=== PATIENT | female | born 1995 | race Caucasian/White ===

== ENCOUNTER 2019-10-11 14:14 | Emergency (ER) | payer BC ==
[2019-10-11 14:25] VITALS: BP 119/79
--- NOTE | 2019-10-11 15:01 | XRAY Report ---
Reason: trauma toes Procedure Date: 10/11/2019 Accession Number: [id number] / [id number] Procedure: XR - Toe(s) LT CPT Code: Final Report FULL RESULT: EXAM: LEFT FIRST TOE RADIOGRAPHY EXAM DATE: 10/11/2019 02:46 PM. CLINICAL HISTORY: Trauma toes. COMPARISON: None. TECHNIQUE: 3 views. FINDINGS: Bones: No acute fracture. Joints: No dislocation or subluxation. Soft Tissues: Unremarkable. IMPRESSION: No acute osseous or articular abnormality. RADIA
--- NOTE | 2019-10-11 16:20 | ED Physician Documentation ---
PD HPI LOWER EXT INJURY - Stated complaint Stated Complaint: LT BIG TOE PX - Chief complaint Chief Complaint: Trauma Ext - History obtained from History obtained from: Patient, Family - History of Present Illness PD HPI LOW EXT INJURY LOCATION: Left, Other (great toe) Type of injury: Other (bent backwards 4 days ago, continued pain.) Where injury occurred: Home Timing - duration: Days (4) Timing - details: Gradual onset Pain level max: 7 Pain level now: 5 Improved by: Rest, Ice, Immobilization Worsened by: Moving, Palpating Associated symptoms: Swelling, Discolored (bruising). No: Weakness, Numbness, Tingling Recently seen: Not recently seen Review of Systems Constitutional: denies: Fever : denies: Now EGA Skin: denies: Rash PD PAST MEDICAL HISTORY - Past Medical History Past Medical History: No - Past Surgical History Past Surgical History: No - Living Situation Living Arrangement: reports: At home - Family History Family history: reports: Non contributory PD ED PE NORMAL - Vitals Vital signs reviewed: Yes - General General: Alert and oriented X 3, No acute distress - Derm Derm: Warm and dry - Extremities Extremities: Other (Tender to palpation over the MTP joint Of the left great toe. Mild ecchymosis. No swelling. Neurovascular intact. Otherwise normal exam of the foot. No subungual hematoma.) - Neuro Neuro: Alert and oriented X 3 Results - Vitals Vitals: Vital Signs - 24 hr 10/11/19 14:23 Temperature 36.1 C L Heart Rate 73 Respiratory 20 Rate Blood Pressure 119/79 O2 Saturation 100 Oxygen O2 Source Room air - Rads (name of study) Left great toe x-ray Radiology: Prelim report reviewed, EMP read contemporaneously, See rad report (No acute osseous abnormality) PD MEDICAL DECISION MAKING - ED course Complexity details: reviewed results, considered differential, d/w patient ED course: Patient with a left great toe sprain. We will place her in a postoperative shoe. Declines pain medication here or for home. Patient counseled regarding signs and symptoms for which I believe and urgent re-evaluation would be necessary. Patient with good understanding of and agreement to plan and is comfortable going home at this time This document was made in part using voice recognition software. While efforts are made to proofread this document, sound alike and grammatical errors may occur. Departure - Departure Disposition: 01 Home, Self Care Clinical Impression: Sprain of great toe of left foot Qualifiers: Encounter type: initial encounter Qualified Code(s): S93.502A - Unspecified sprain of left great toe, initial encounter Condition: Good Instructions: ED Sprain Toe Follow-Up: Provider,Other [Primary Care Provider] - Within 1 week Comments: Return if you worsen. Your x-ray does not show any acute abnormality today. Follow-up with your doctor in 1 week if you are still having symptoms. You can use Motrin or Tylenol as needed for pain. You can utilize the postoperative shoe for comfort as well.
== END 2019-10-11 16:27 | disposition home or self-care (01) ==
LOC: ED 14:14
DX: S93.502A Unspecified sprain of left great toe, initial encounter (principal); X50.1XXA Overexertion from prolonged static or awkward postures, initial encounter
CPT/HCPCS: 73660; 99282; 99283

== ENCOUNTER 2019-12-23 08:00 | Outpatient (CLI) | payer BC, OTHER ==
[2019-12-23 21:55] LABS: TRICHOMONAS VAGINALIS DNA NEGATIVE (NEGATIVE)
== END 2019-12-23 23:59 | disposition home or self-care (01) ==
LOC: LAB.R 08:00
PROVIDERS: ATTEND Advanced Practice Midwife
DX: Z30.49 Encounter for surveillance of other contraceptives (principal)
CPT/HCPCS: 87491; 87591; 87661

== ENCOUNTER 2020-04-13 11:50 | Outpatient (CLI) | payer OTHER | END 2020-04-13 23:59 | disposition home or self-care (01) | LOC: COV 11:50 | PROVIDERS: ATTEND Family Medicine | DX: R50.9 Fever, unspecified (principal); Z20.828 Contact with and (suspected) exposure to other viral communicable diseases ==

== ENCOUNTER 2020-04-13 12:12 | Emergency (ER) | payer OTHER ==
[2020-04-13 12:38] LABS: BASOPHILS % (AUTO) 0.1 %; EOSINOPHILS # (AUTO) 0.1 10^3/uL (0.0-0.7); HGB - HEMOGLOBIN 15.2 g/dL (12.0-16.0); LYMPHOCYTES # (AUTO) 0.9 10^3/uL (1.5-3.5); LYMPHOCYTES % (AUTO) 10.3 %; MEAN CORPUSCULAR HEMOGLOBIN 31.7 pg (27.0-31.0); MEAN CORPUSCULAR HGB CONC 34.2 g/dL (32.0-36.0); MEAN CORPUSCULAR VOLUME 92.7 fL (81.0-99.0); MEAN PLATELET VOLUME 10.3 fL (7.9-10.8); MONOCYTES # (AUTO) 0.7 10^3/uL (0.0-1.0); MONOCYTES % (AUTO) 7.9 %; NEUTROPHILS # (AUTO) 7.3 10^3/uL (1.5-6.6); NEUTROPHILS % (AUTO) 80.3 %; PLT - PLATELET COUNT 208 10^3/uL (130-450); RED CELL DISTRIBUTION WIDTH 12.6 % (12.0-15.0); WHITE BLOOD COUNT 9.1 x10^3/uL (4.8-10.8)
[2020-04-13 12:52] LABS: ALBUMIN 4.2 g/dL (3.2-5.5); ALBUMIN/GLOBULIN RATIO 1.1 (1.0-2.2); BILIRUBIN,TOTAL 0.7 mg/dL (0.2-1.0); CALCIUM 9.2 mg/dL (8.5-10.3); CREATININE 0.8 mg/dL (0.4-1.0); TOTAL PROTEIN 7.9 g/dL (6.7-8.2)
[2020-04-13] MEDS ORDERED: SODIUM CHLORIDE 0.9% 1,000 ML IV STA (14:28)
--- NOTE | 2020-04-13 14:29 | ED Physician Documentation ---
History of Present Illness - Stated complaint Stated Complaint: FEVER/VOMITING - Chief complaint Chief Complaint: Abd Pain - Additonal information Additional information: 24-year-old female presents to the emergency department for evaluation of 3 days nausea vomiting diarrhea body aches. She also reports that she has had fever as high as 102.5. She reports that she received the flu vaccine just last week and this morning she did receive COVID-19 screening on the advice of her employer. She denies cough, congestion, she has no pertinent past surgical history. She states that she is typically able to keep most liquids down but when she eats food she begins to have diarrhea rather rapidly. She has had no melena, hematochezia, or emesis. denies tobacco, etoh use. denies possibility of . she does have a hx of interstitial cystitis but denies that at present she is having a flare or having dysuria urgency or frequency. Review of Systems Constitutional: reports: Fever, Myalgias Nose: denies: Rhinorrhea / runny nose, Congestion Cardiac: denies: Chest pain / pressure, Palpitations, Pedal edema, Calf pain Respiratory: denies: Dyspnea, Cough, Hemoptysis, Wheezing GI: reports: Nausea, Vomiting, Diarrhea. denies: Hematemesis, Bloody / black stool : reports: Other (History of interstitial cystitis). denies: Dysuria, Frequency, Hesitancy Skin: denies: Rash, Lesions Musculoskeletal: reports: Back pain (Chronic back pain, scoliosis, multiple herniated disks.). 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 - Past Surgical History Past Surgical History: No - Present Medications Home Medications: Ambulatory Orders Medication Instructions Recorded Confirmed Etonogestrel [Nexplanon] 68 mg SQ DAILY 04/13/20 04/13/20 Nortriptyline [Pamelor] 25 mg PO DAILY 04/13/20 04/13/20 - Allergies Allergies/Adverse Reactions: Allergies Allergy/AdvReac Type Severity Reaction Status Date / Time No Known Drug Allergies Allergy Verified 04/13/20 12:23 - Social History Does the pt smoke?: No Smoking Status: Never smoker PD ED PE NORMAL - General General: Alert and oriented X 3, No acute distress, Well developed/nourished - HEENT HEENT: PERRL, EOMI, Other (Dry posterior oropharynx and lips) - Neck Neck: Supple, no meningeal sign, No adenopathy - Cardiac Cardiac: RRR, No murmur, Strong equal pulses - Respiratory Respiratory: No respiratory distress, Clear bilaterally - Abdomen Abdomen: Normal bowel sounds, Soft, Non tender - Back Back: No CVA TTP, No spinal TTP - Derm Derm: Normal color, Warm and dry, No rash - Extremities Extremities: No deformity - Neuro Neuro: Alert and oriented X 3, sponsorship manager 2-12 intact, No motor deficit Eye Opening: Spontaneous Motor: Obeys Commands Verbal: Oriented GCS Score: 15 Results - Vitals Vitals: Vital Signs - 24 hr 04/13/20 04/13/20 12:20 13:54 Temperature 37.2 C 37.3 C Heart Rate 127 H 125 H Respiratory 20 12 Rate Blood Pressure 124/77 115/80 O2 Saturation 98 100 Oxygen O2 Source Room air - Labs Labs: Laboratory Tests 04/13/20 04/13/20 04/13/20 12:34 12:34 14:30 WBC 9.1 RBC 4.80 Hgb 15.2 Hct 44.5 MCV 92.7 MCH 31.7 H MCHC 34.2 RDW 12.6 Plt Count 208 MPV 10.3 Neut # (Auto) 7.3 H Lymph # (Auto) 0.9 L [place] # (Auto) 0.7 Eos # (Auto) 0.1 Baso # (Auto) 0.0 Absolute Nucleated RBC 0.00 Nucleated RBC % 0.0 Sodium 136 Potassium 3.7 Chloride 100 L Carbon Dioxide 27 Anion Gap 9.0 BUN 9 Creatinine 0.8 Estimated GFR (MDRD) 90 Glucose 107 H Calcium 9.2 Total Bilirubin 0.7 AST 19 ALT 20 Alkaline Phosphatase 110 Total Protein 7.9 Albumin 4.2 Globulin 3.7 Albumin/Globulin Ratio 1.1 Lipase 29 Urine Color YELLOW Urine Clarity SL. CLOUDY Urine pH 6.0 Ur Specific [place] 1.025 Urine Protein NEGATIVE Urine Glucose (UA) NEGATIVE Urine Ketones NEGATIVE Urine Occult Blood LARGE H Urine Nitrite NEGATIVE Urine Bilirubin NEGATIVE Urine Urobilinogen 0.2 (NORMAL) Ur Leukocyte Esterase NEGATIVE Urine RBC 0-5 Urine WBC 4-5 Ur Squamous Epith Cells MOD Squamous H Urine Bacteria Few Ur Microscopic Review INDICATED Urine Culture Comments NOT INDICATED Urine HCG, Qual NEGATIVE PD MEDICAL DECISION MAKING - ED course Complexity details: reviewed results, re-evaluated patient, d/w patient ED course: 24-year-old female presents to the emergency department for evaluation of 3 days nausea vomiting diarrhea body aches and fever as high as 102.5. Differentials include acute gastroenteritis, COVID-19, acute appendectomy, urinary tract infection Her labs are reviewed in full. She has no leukocytosis findings of renal insufficiency or elevated LFTs. I do note that there is some blood in her urine. I think this is most consistent with a history of interstitial cystitis. However she lacks the typical symptoms of a urinary tract infection. We will defer antibiotics for her urine unless the culture is positive. At this time I feel that her symptoms are most consistent with an acute viral gastroenteritis. She has no abdominal pain and I do not feel that she would benefit from advanced imaging such as a CT scan. I recommend fluids and rest at home. We will defer any antibiotics as her diarrhea has only been for the last 3 days and is nonbloody. However if her diarrhea persists and her fevers do not return to normal antibiotics might be considered at that time. Departure - Departure Disposition: 01 Home, Self Care Clinical Impression: Diarrhea Qualifiers: Diarrhea type: unspecified type Qualified Code(s): R19.7 - Diarrhea, unspecified Fever Qualifiers: Fever type: unspecified Qualified Code(s): R50.9 - Fever, unspecified Condition: Stable Instructions: Gastroenteritis Viral Ch Follow-Up: Bhupinder Damon [Primary Care Provider] - Comments: Maria I hope that you are feeling better soon. Your labs today look fairly unremarkable. Your liver and renal function is normal. Your white count is normal. I do not think that you have a urinary tract infection. The most common cause of your fever and vomiting and diarrhea is most low [place] of virus. This typically runs its course in 3 to 5 days. At home I would like you to try and stay well-hydrated. Drink lots of water and broth. Avoid juice or sport drinks because that can worsen diarrhea. If at any point you feel that your symptoms are worsening, the diarrhea is not in, your fevers do not improve or you have suddenly severe or different abdominal pain please return immediately to the emergency department for a second look
[2020-04-13 15:18] LABS: BILIRUBIN,URINE NEGATIVE (NEGATIVE); GLUCOSE, URINE (UA) NEGATIVE (NEGATIVE); KETONES,URINE (UA) NEGATIVE (NEGATIVE); LEUKOCYTE ESTERASE, URINE NEGATIVE (NEGATIVE); NITRITE,URINE NEGATIVE (NEGATIVE); OCCULT BLOOD,URINE LARGE (NEGATIVE); PROTEIN,URINE NEGATIVE (NEGATIVE); UROBILINOGEN,URINE 0.2 (NORMAL) E.U./dL (NORMAL)
[2020-04-13 15:28] LABS: BACTERIA,URINE Few /HPF (None Seen); CLARITY,URINE SL. CLOUDY (CLEAR); HCG UR QUAL NEGATIVE; RBC,URINE 0-5 /HPF (0-5); SQUAMOUS EPITHELIAL CELL,UR MOD Squamous (<= Few)
[2020-04-13 16:07] VITALS: BP 110/86
== END 2020-04-13 16:12 | disposition home or self-care (01) ==
LOC: ED 12:12
DX: R19.7 Diarrhea, unspecified (principal); R11.2 Nausea with vomiting, unspecified; R50.9 Fever, unspecified; Z20.828 Contact with and (suspected) exposure to other viral communicable diseases
CPT/HCPCS: 36415; 80053; 81001; 81003; 81025; 83690; 85025; 87086; 99283; 99284

== ENCOUNTER 2020-11-15 15:27 | Emergency (ER) | payer BC, OTHER ==
[2020-11-15 15:44] VITALS: BP 113/76
[2020-11-15 16:04] LABS: BILIRUBIN,URINE NEGATIVE (NEGATIVE); GLUCOSE, URINE (UA) NEGATIVE (NEGATIVE); KETONES,URINE (UA) NEGATIVE (NEGATIVE); LEUKOCYTE ESTERASE, URINE NEGATIVE (NEGATIVE); NITRITE,URINE NEGATIVE (NEGATIVE); OCCULT BLOOD,URINE NEGATIVE (NEGATIVE); PROTEIN,URINE NEGATIVE (NEGATIVE); UROBILINOGEN,URINE 0.2 (NORMAL) E.U./dL (NORMAL)
[2020-11-15 16:05] LABS: CLARITY,URINE SL. CLOUDY (CLEAR); HCG UR QUAL NEGATIVE
[2020-11-15 16:07] LABS: AMORPHOUS SEDIMENT,UR Marked /LPF; BACTERIA,URINE None Seen /HPF (None Seen); RBC,URINE 0-5 /HPF (0-5); SQUAMOUS EPITHELIAL CELL,UR FEW Squamous (<= Few); WBC,URINE 0-3 /HPF (0-5)
--- NOTE | 2020-11-15 16:41 | ED Physician Documentation ---
History of Present Illness - Stated complaint Stated Complaint: F - Chief complaint Chief Complaint: UTI - Additonal information Additional information: 25-year-old female presents to the emergency department for evaluation of urinary urgency, frequency and nausea. Patient does report a history of kidney stones as well as interstitial cystitis. She is concerned that this might be IC flare. She does see Dr. Tamayo through [facility] urology and is scheduled for cystoscopy on 29 November. She has no fevers or vomiting. No recent sexual intercourse. Denies vaginal discharge. Review of Systems Constitutional: reports: Fatigue. denies: Fever, Chills Eyes: reports: Reviewed and negative Ears: reports: Reviewed and negative Nose: reports: Reviewed and negative Throat: reports: Reviewed and negative Cardiac: reports: Reviewed and negative Respiratory: reports: Reviewed and negative GI: reports: Nausea. 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 - Past Surgical History Past Surgical History: No - Present Medications Home Medications: Ambulatory Orders Medication Instructions Recorded Confirmed Nortriptyline [Pamelor] 25 mg PO DAILY 04/13/20 11/15/20 Phenazopyridine HCl [Pyridium] 200 mg PO TID PRN #6 tablet 11/15/20 - Allergies Allergies/Adverse Reactions: Allergies Allergy/AdvReac Type Severity Reaction Status Date / Time No Known Drug Allergies Allergy Verified 11/15/20 15:42 - Social History Does the pt smoke?: No Smoking Status: Never smoker PD ED PE EXPANDED - General General: Alert, No acute distress, Well developed/nourished - Cardiac Cardiac: Regular Rate, Regular Rhythm, Radial strong equal, Cap refill < 2 sec - Respiratory Respiratory: Clear to ausultation bruna. No: Distress, Labored - Abdomen Abdomen: Normal Bowel sounds, Other (No suprapubic flank or CVA tenderness elicited. No guarding or rebound.). No: Tender to palpation - Derm Derm: Normal color, Warm and dry. No: Rash, Petecchiae, Purpura - Extremities Extremities: Normal. No: Deformity, Tenderness - Neuro Neuro: Alert and Oriented X 3, CNII-XII intact, Normal gait, Normal finger nose, Normal speech. No: Confused, Disoriented - GCS Eye Opening: Spontaneous Motor: Obeys Commands Verbal: Oriented Total: 15 Results - Vitals Vitals: Vital Signs - 24 hr 11/15/20 15:40 Temperature 37.1 C Heart Rate 98 Respiratory 16 Rate Blood Pressure 113/76 O2 Saturation 99 Oxygen O2 Source Room air - Labs Labs: Laboratory Tests 11/15/20 15:46 Urine Color YELLOW Urine Clarity SL. CLOUDY Urine pH 7.0 Ur Specific [place] 1.020 Urine Protein NEGATIVE Urine Glucose (UA) NEGATIVE Urine Ketones NEGATIVE Urine Occult Blood NEGATIVE Urine Nitrite NEGATIVE Urine Bilirubin NEGATIVE Urine Urobilinogen 0.2 (NORMAL) Ur Leukocyte Esterase NEGATIVE Urine RBC 0-5 Urine WBC 0-3 Ur Squamous Epith Cells FEW Squamous Amorphous Sediment Marked Urine Bacteria None Seen Ur Microscopic Review INDICATED Urine Culture Comments NOT INDICATED Urine HCG, Qual NEGATIVE PD MEDICAL DECISION MAKING - ED course Complexity details: reviewed results, re-evaluated patient, d/w patient ED course: This is a well-appearing 25-year-old female that presents the emergency department with 3 days of dysuria urgency and frequency. She does have a history of interstitial cystitis as well as kidney stones. The urine today is not consistent with infection though a culture is pending. I suspect that what she is experiencing right now is a UC flare and therefore I will defer antibiotics. I will put her on a 4-day course of Pyridium. Patient does have very close follow-up with her urologist and is scheduled for a cystoscopy on 29 November which she will continue to do. I have no suspicion for infected renal stone given the appearance of the urine in addition to that she had no flank pain CVA tenderness or significant hematuria. Emergent return precautions were discussed for worsening symptoms, fevers uncontrolled vomiting. Departure - Departure Disposition: 01 Home, Self Care Clinical Impression: Dysuria Condition: Stable Record reviewed to determine appropriate education?: Yes Instructions: Cystitis Interstitial Follow-Up: Stephanie Tamayo MD [Physician No Access] - Prescriptions: Phenazopyridine HCl [Pyridium] 200 mg PO TID PRN #6 tablet PRN Reason: dysuria Comments: Maria you were seen today for discomfort urgency and frequency with relation to your urine. Your urine does not suggest an infection today. You having are likely an interstitial cystitis flare. I have prescribed pyridium to help with bladder pain and spasms. Use twice daily for the next 3 days. Be aware that it will cause your urine to turn a bright orange. I also recommend that you stay well-hydrated and drink lots of water. Please do not miss the follow-up appointment with your urologist. If at any point you develop fevers, have increased pain uncontrolled vomiting or feel that your symptoms are not well controlled please return immediately to the ER for a second evaluation
== END 2020-11-15 16:51 | disposition home or self-care (01) ==
LOC: ED 15:27
DX: R30.0 Dysuria (principal)
CPT/HCPCS: 81001; 81003; 81025; 87086; 99283

== ENCOUNTER 2020-11-29 16:01 | Outpatient (CLI) | payer OTHER ==
--- NOTE | 2020-11-29 17:22 | Ultrasound Report ---
PROCEDURE: OB First Trimester w/TV INDICATIONS: POSITIVE TEST OUTSIDE/PRIOR DATING DATA: Last menstrual period (LMP): 10/26/2020. LMP-based estimated date of delivery (JAYCE): 08/02/2021. First dating scan (date and location): This study. Estimated date of delivery (JAYCE) from first dating scan: No gestation found.. TECHNIQUE: Real-time scanning was performed of the fetus and maternal pelvic organs, with image documentation. Endovaginal scanning was also performed to better visualize the fetus and maternal ovaries. COMPARISON: None FINDINGS: A gestational sac or intrauterine gestation is not found Embryo: None seen. Measurement variability in dating: +/- 4 weeks by LMP, +/- 7 days by mean sac diameter (use before 6 weeks gestation if crown-rump length not able to be measured), +/- 5 days by crown-rump length (6-12 weeks gestation). Maternal organs: Ovaries what appears to be a left corpus luteum cyst is noted.. IMPRESSION: An intrauterine gestation or secondary findings of ectopic are not seen. Please correlate f or quantitative beta hCG to assist in determining whether an intrauterine gestation should be visuali zed based on beta hCG values. Please note that ectopic has not yet been excluded in this cl inical circumstance. Reviewed by: Charly Elliott MD on 11/29/2020 5:21 PM PDT Approved by: Charly Elliott MD on 11/29/2020 5:21 PM PDT Station ID: [id number]
== END 2020-11-29 16:02 | disposition home or self-care (01) ==
LOC: DI 16:01
PROVIDERS: ATTEND Advanced Practice Midwife
DX: Z32.01 Encounter for pregnancy test, result positive (principal)

== ENCOUNTER 2020-12-02 17:27 | Outpatient (CLI) | payer OTHER | END 2020-12-02 17:28 | disposition home or self-care (01) | LOC: LAB 17:27 | PROVIDERS: ATTEND Nurse Practitioner Obstetrics & Gynecology | DX: Z32.01 Encounter for pregnancy test, result positive (principal) | CPT/HCPCS: 36415; 84702 ==

== ENCOUNTER 2020-12-06 16:10 | Outpatient (CLI) | payer OTHER | END 2020-12-06 16:11 | disposition home or self-care (01) | LOC: LAB 16:10 | PROVIDERS: ATTEND Nurse Practitioner Obstetrics & Gynecology | DX: Z32.01 Encounter for pregnancy test, result positive (principal) | CPT/HCPCS: 36415; 84702 ==

== ENCOUNTER 2020-12-09 14:02 | Outpatient (CLI) | payer OTHER | END 2020-12-09 14:03 | disposition home or self-care (01) | LOC: LAB 14:02 | PROVIDERS: ATTEND Nurse Practitioner Obstetrics & Gynecology | DX: Z32.01 Encounter for pregnancy test, result positive (principal) | CPT/HCPCS: 36415; 84702 ==

== ENCOUNTER 2020-12-22 17:34 | Emergency (ER) | payer OTHER ==
--- OUTSIDE RECORDS SUMMARY | 2020-12-22 17:38 | EXTERNAL MEDICAL SUMMARY RPT | Continuity of Care Document ---
:1995 Demographics Phone Unavailable Preferred Language Unknown Marital Status Unknown Yarsani Affiliation Unknown Race Unknown Ethnic Group Unknown Author Organization [facility] Address [address] [place] [address] Phone Social History date description facility [phone]
--- OUTSIDE RECORDS SUMMARY | 2020-12-22 17:41 | EXTERNAL MEDICAL SUMMARY RPT | Continuity of Care Document ---
:1995 Demographics Phone Unavailable Preferred Language Unknown Marital Status Unknown Rastafari Affiliation Unknown Race Unknown Ethnic Group Unknown Author Organization [facility] Address [address] [place] [address] Phone Social History date description facility [phone]
--- NOTE | 2020-12-22 17:58 | ED Physician Documentation ---
PD HPI FEMALE - Stated complaint Stated Complaint: FEMALE 7-8 WKS - Chief complaint Chief Complaint: Abd Pain - History obtained from History obtained from: Patient - Additional information Additional information: with history of 2 miscarriages has been having some side pain for last couple of weeks but started having spotting this evening which is very concerning to her. She had a nondiagnostic ultrasound on the seventh of this month. She was also being evaluated and was having generally rising hCGs starting out at 1530 on the of this month and [id number] on the of this month. 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 : Other - Past Surgical History Past Surgical History: No - Present Medications Home Medications: Ambulatory Orders Medication Instructions Recorded Confirmed Nortriptyline [Pamelor] 25 mg PO DAILY 04/13/20 12/22/20 Pnv No.95/Ferrous Fum/Folic AC 1 tab PO DAILY 12/22/20 12/22/20 [ Tablet] - Allergies Allergies/Adverse Reactions: Allergies Allergy/AdvReac Type Severity Reaction Status Date / Time No Known Drug Allergies Allergy Verified 12/22/20 17:39 - Social History Does the pt smoke?: No Smoking Status: Never smoker PD ED PE NORMAL - Vitals Vital signs reviewed: Yes - General General: Alert and oriented X 3 (She is tearful) - Abdomen Abdomen: Normal bowel sounds, Soft, Non tender - Female Female : Other (Bedside ultrasound demonstrates no IUP, I do not see free fluid either though.) - Back Back: No CVA TTP, No spinal TTP - Neuro Neuro: Alert and oriented X 3, Normal speech Results - Vitals Vitals: Vital Signs - 24 hr 12/22/20 12/22/20 17:40 19:11 Temperature 36.9 C 37.4 C Heart Rate 93 90 Respiratory 18 12 Rate Blood Pressure 126/77 124/83 H O2 Saturation 100 96 Oxygen O2 Source Room air - Labs Labs: Laboratory Tests 12/22/20 12/22/20 12/22/20 17:52 17:52 17:52 WBC 9.5 RBC 4.38 Hgb 13.9 Hct 39.9 MCV 91.1 MCH 31.7 H MCHC 34.8 RDW 12.0 Plt Count 263 MPV 11.1 H Neut # (Auto) 6.7 H Lymph # (Auto) 2.0 [place] # (Auto) 0.8 Eos # (Auto) 0.1 Baso # (Auto) 0.0 Absolute Nucleated RBC 0.00 Nucleated RBC % 0.0 Sodium 136 Potassium 3.3 L Chloride 102 Carbon Dioxide 25 Anion Gap 9.0 BUN 9 Creatinine 0.5 Estimated GFR (MDRD) 153 Glucose 94 Calcium 9.5 Total Bilirubin 0.7 AST 26 ALT 29 Alkaline Phosphatase 98 Total Protein 7.7 Albumin 4.5 Globulin 3.2 Albumin/Globulin Ratio 1.4 Lipase 28 HCG, Quant Urine Color Urine Clarity Urine pH Ur Specific [place] Urine Protein Urine Glucose (UA) Urine Ketones Urine Occult Blood Urine Nitrite Urine Bilirubin Urine Urobilinogen Ur Leukocyte Esterase Urine RBC Urine WBC Ur Squamous Epith Cells Urine Bacteria Ur Microscopic Review Urine Culture Comments Blood Type O POSITIVE 12/22/20 12/22/20 17:52 17:52 WBC RBC Hgb Hct MCV MCH MCHC RDW Plt Count MPV Neut # (Auto) Lymph # (Auto) [place] # (Auto) Eos # (Auto) Baso # (Auto) Absolute Nucleated RBC Nucleated RBC % Sodium Potassium Chloride Carbon Dioxide Anion Gap BUN Creatinine Estimated GFR (MDRD) Glucose Calcium Total Bilirubin AST ALT Alkaline Phosphatase Total Protein Albumin Globulin Albumin/Globulin Ratio Lipase HCG, Quant 303155.00 Urine Color YELLOW Urine Clarity CLEAR Urine pH 6.0 Ur Specific [place] 1.010 Urine Protein NEGATIVE Urine Glucose (UA) NEGATIVE Urine Ketones NEGATIVE Urine Occult Blood NEGATIVE Urine Nitrite NEGATIVE Urine Bilirubin NEGATIVE Urine Urobilinogen 0.2 (NORMAL) Ur Leukocyte Esterase SMALL H Urine RBC 0-5 Urine WBC 0-3 Ur Squamous Epith Cells RARE Squamous Urine Bacteria Rare Ur Microscopic Review INDICATED Urine Culture Comments INDICATED Blood Type PD MEDICAL DECISION MAKING - ED course ED course: 25-year-old woman presents scared about the potential for miscarriage having done so twice before, but work-up here was reassuring with evidence of live intrauterine and steadily rising hCG. Blood type is O+. Departure - Departure Disposition: 01 Home, Self Care Clinical Impression: Vaginal bleeding Qualifiers: Weeks of gestation: less than 8 weeks Qualified Code(s): Z3A.01 - Less than 8 weeks gestation of Condition: Good Record reviewed to determine appropriate education?: Yes Instructions: ED Care Comments: Ultrasound is reassuring with a live 7-week 3-day . Follow-up with the nurse exam proctor and return if worsening. Discharge Date/Time: 12/22/20 19:16
[2020-12-22 18:03] LABS: BASOPHILS % (AUTO) 0.3 %; EOSINOPHILS # (AUTO) 0.1 10^3/uL (0.0-0.7); EOSINOPHILS % (AUTO) 0.5 %; HCT - HEMATOCRIT 39.9 % (37.0-47.0); HGB - HEMOGLOBIN 13.9 g/dL (12.0-16.0); LYMPHOCYTES % (AUTO) 20.4 %; MEAN CORPUSCULAR HEMOGLOBIN 31.7 pg (27.0-31.0); MEAN CORPUSCULAR HGB CONC 34.8 g/dL (32.0-36.0); MEAN CORPUSCULAR VOLUME 91.1 fL (81.0-99.0); MEAN PLATELET VOLUME 11.1 fL (7.9-10.8); MONOCYTES # (AUTO) 0.8 10^3/uL (0.0-1.0); NEUTROPHILS # (AUTO) 6.7 10^3/uL (1.5-6.6); NEUTROPHILS % (AUTO) 70.6 %; PLT - PLATELET COUNT 263 10^3/uL (130-450); RED BLOOD COUNT 4.38 10^6/uL (4.20-5.40); WHITE BLOOD COUNT 9.5 x10^3/uL (4.8-10.8)
[2020-12-22 18:11] LABS: BILIRUBIN,URINE NEGATIVE (NEGATIVE); GLUCOSE, URINE (UA) NEGATIVE (NEGATIVE); KETONES,URINE (UA) NEGATIVE (NEGATIVE); LEUKOCYTE ESTERASE, URINE SMALL (NEGATIVE); NITRITE,URINE NEGATIVE (NEGATIVE); OCCULT BLOOD,URINE NEGATIVE (NEGATIVE); PROTEIN,URINE NEGATIVE (NEGATIVE); UROBILINOGEN,URINE 0.2 (NORMAL) E.U./dL (NORMAL)
[2020-12-22 18:12] LABS: ALBUMIN 4.5 g/dL (3.2-5.5); ALBUMIN/GLOBULIN RATIO 1.4 (1.0-2.2); BILIRUBIN,TOTAL 0.7 mg/dL (0.2-1.0); CALCIUM 9.5 mg/dL (8.5-10.3); CREATININE 0.5 mg/dL (0.4-1.0); POTASSIUM 3.3 mmol/L (3.5-5.0); TOTAL PROTEIN 7.7 g/dL (6.7-8.2)
[2020-12-22 18:13] LABS: BACTERIA,URINE Rare /HPF (None Seen); CLARITY,URINE CLEAR (CLEAR); RBC,URINE 0-5 /HPF (0-5); SQUAMOUS EPITHELIAL CELL,UR RARE Squamous (<= Few); WBC,URINE 0-3 /HPF (0-5)
[2020-12-22 19:12] VITALS: BP 124/83
--- NOTE | 2020-12-22 19:40 | Ultrasound Report ---
PROCEDURE: OB First Trimester w/TV INDICATIONS: vb PREG, HCG [id number] OUTSIDE/PRIOR DATING DATA: Last menstrual period (LMP): 10/26/2020. LMP-based estimated date of delivery (JAYCE): 08/02/2021. First dating scan (date and location): 12/22/2020 at [facility]. Estimated date of delivery (JAYCE) from first dating scan: 08/07/2021. TECHNIQUE: Real-time scanning was performed of the fetus and maternal pelvic organs, with image documentation. Endovaginal scanning was also performed to better visualize the fetus and maternal ovaries. COMPARISON: OB ultrasound, 11/29/2020. FINDINGS: Embryo: There is a single living IUP with with the estimated gestational age 7 weeks 3 days. h eart tone is present with heart rate 165 BPM. There is a normal-appearing yolk sac. There is a 4 x 5 mm cyst adjacent to the gestational sac. Note is made of retroverted uterus. Measurement variability in dating: +/- 4 weeks by LMP, +/- 7 days by mean sac diameter (use before 6 weeks gestation if crown-rump length not able to be measured), +/- 5 days by crown-rump length (6-12 weeks gestation). Maternal organs: There is a corpus luteum in the left ovary. Ovaries are grossly normal. IMPRESSION: 1. A single living IUP with the estimated gestational age 7 weeks 3 days based on the current ultraso und. The ultrasound JAYCE is 08/07/2021. 2. A small 4 x 5 mm cyst adjacent to the gestational sac. No perinephric gestational bleed is present . 3. Normal ovaries. A corpus luteum is noted in the left ovary. Reviewed by: Samm Melton MD on 12/22/2020 7:38 PM PDT Approved by: Samm Melton MD on 12/22/2020 7:38 PM PDT Station ID: [id number]
== END 2020-12-22 19:16 | disposition home or self-care (01) ==
LOC: ED 17:34
DX: O20.9 Hemorrhage in early pregnancy, unspecified (principal); Z3A.01 Less than 8 weeks gestation of pregnancy
CPT/HCPCS: 36415; 80053; 81001; 81003; 83690; 84702; 85025; 86900; 86901; 87086; 99283; 99284

== ENCOUNTER 2021-01-10 11:00 | Outpatient (CLI) | payer OTHER ==
[2021-01-11 11:48] LABS: MUDS CUTOFF CONCENTRATIONS CUTOFF CONC BELOW:
[2021-01-11 11:53] LABS: BILIRUBIN,URINE NEGATIVE (NEGATIVE); GLUCOSE, URINE (UA) NEGATIVE (NEGATIVE); KETONES,URINE (UA) NEGATIVE (NEGATIVE); LEUKOCYTE ESTERASE, URINE NEGATIVE (NEGATIVE); NITRITE,URINE NEGATIVE (NEGATIVE); OCCULT BLOOD,URINE NEGATIVE (NEGATIVE); PROTEIN,URINE NEGATIVE (NEGATIVE); UROBILINOGEN,URINE 0.2 (NORMAL) E.U./dL (NORMAL)
[2021-01-11 11:54] LABS: CLARITY,URINE CLOUDY (CLEAR)
[2021-01-11 12:02] LABS: AMORPHOUS SEDIMENT,UR Moderate /LPF; BACTERIA,URINE Few /HPF (None Seen); RBC,URINE 0-5 /HPF (0-5); SQUAMOUS EPITHELIAL CELL,UR MOD Squamous (<= Few); WBC,URINE 0-3 /HPF (0-5)
[2021-01-11 12:03] LABS: AMPHETAMINE SCREEN,URINE NEGATIVE (NEGATIVE); BARBITURATE SCREEN,UR NEGATIVE (NEGATIVE); BENZODIAZEPINES SCREEN, URINE NEGATIVE (NEGATIVE); COCAINE SCREEN URINE NEGATIVE (NEGATIVE); CRYSTALS,URINE 3-5 Calcium Oxalate /LPF; METHADONE SCREEN, URINE NEGATIVE (NEGATIVE); METHAMPHETAMINES SCREEN, URINE NEGATIVE (NEGATIVE); OPIATE SCREEN, URINE NEGATIVE (NEGATIVE); OXYCODONE SCREEN, URINE NEGATIVE (NEGATIVE); PROPOXYPHENE SCREEN, URINE NEGATIVE (NEGATIVE); THC CANNABINOID SCREEN, URINE POSITIVE (NEGATIVE); TRICYCLIC ANTIDEPRESSANT,URINE NEGATIVE (NEGATIVE)
[2021-01-11 21:09] LABS: CHLAMYDIA TRACHOMATIS DNA NEGATIVE (NEGATIVE); NEISSERIA GONORRHOEAE DNA NEGATIVE (NEGATIVE); TRICHOMONAS VAGINALIS DNA NEGATIVE (NEGATIVE)
== END 2021-01-10 23:59 | disposition home or self-care (01) ==
LOC: LAB.R 11:00
PROVIDERS: ATTEND Obstetrics & Gynecology
DX: Z36.89 Encounter for other specified antenatal screening (principal)
CPT/HCPCS: 80306; 80349; 81001; 81599; 87491; 87591; 87661

== ENCOUNTER 2021-01-17 11:07 | Outpatient (CLI) | payer OTHER ==
[2021-01-17 11:31] LABS: BASOPHILS % (AUTO) 0.3 %; EOSINOPHILS # (AUTO) 0.1 10^3/uL (0.0-0.7); HGB - HEMOGLOBIN 12.1 g/dL (12.0-16.0); LYMPHOCYTES # (AUTO) 1.3 10^3/uL (1.5-3.5); LYMPHOCYTES % (AUTO) 21.6 %; MEAN CORPUSCULAR HEMOGLOBIN 31.2 pg (27.0-31.0); MEAN CORPUSCULAR HGB CONC 34.6 g/dL (32.0-36.0); MEAN CORPUSCULAR VOLUME 90.2 fL (81.0-99.0); MEAN PLATELET VOLUME 11.5 fL (7.9-10.8); MONOCYTES # (AUTO) 0.5 10^3/uL (0.0-1.0); MONOCYTES % (AUTO) 8.7 %; NEUTROPHILS % (AUTO) 67.7 %; PLT - PLATELET COUNT 192 10^3/uL (130-450); RED BLOOD COUNT 3.88 10^6/uL (4.20-5.40); RED CELL DISTRIBUTION WIDTH 12.3 % (12.0-15.0); WHITE BLOOD COUNT 5.8 x10^3/uL (4.8-10.8)
== END 2021-01-17 11:08 | disposition home or self-care (01) ==
LOC: LAB 11:07
PROVIDERS: ATTEND Obstetrics & Gynecology
DX: Z36.89 Encounter for other specified antenatal screening (principal); Z13.21 Encounter for screening for nutritional disorder; Z32.01 Encounter for pregnancy test, result positive
CPT/HCPCS: 36415; 82306; 84702; 85025; 86592; 86762; 86787; 86803; 86850; 86900; 86901; 87340; 87389

== ENCOUNTER 2021-02-14 11:50 | Outpatient (CLI) | payer OTHER ==
[2021-02-14 12:58] LABS: ALBUMIN 3.4 g/dL (3.2-5.5); ALBUMIN/GLOBULIN RATIO 0.9 (1.0-2.2); BILIRUBIN,TOTAL 0.3 mg/dL (0.2-1.0); CALCIUM 9.2 mg/dL (8.5-10.3); CREATININE 0.4 mg/dL (0.4-1.0); POTASSIUM 3.4 mmol/L (3.5-5.0); TOTAL PROTEIN 7.2 g/dL (6.7-8.2)
[2021-02-16 23:37] LABS: ANA PATTERN Nuclear, Speckled; ANA SCREEN POSITIVE (NEGATIVE); ANA TITER 1:40 titer
== END 2021-02-14 11:51 | disposition home or self-care (01) ==
LOC: LAB 11:50
PROVIDERS: ATTEND Obstetrics & Gynecology
DX: O09.90 Supervision of high risk pregnancy, unspecified, unspecified trimester (principal); O99.119 Other diseases of the blood and blood-forming organs and certain disorders involving the immune mechanism complicating pregnancy, unspecified trimester; O99.019 Anemia complicating pregnancy, unspecified trimester; Z13.21 Encounter for screening for nutritional disorder; M32.9 Systemic lupus erythematosus, unspecified; D64.9 Anemia, unspecified
CPT/HCPCS: 36415; 80053; 81511; 81599; 82306; 82607; 82746; 83540; 84466; 86038; 86235

== ENCOUNTER 2021-03-14 15:10 | Outpatient (CLI) | payer OTHER ==
--- NOTE | 2021-03-15 17:05 | Ultrasound Report ---
PROCEDURE: OB Detailed Eval INDICATIONS: SUPERVISION OF HIGH RISK OUTSIDE/PRIOR DATING DATA: Last menstrual period (LMP): 10/26/2020. LMP-based estimated date of delivery (JAYCE): 08/02/2021. First dating scan (date and location): 12/22/2020. Estimated date of delivery (JAYCE) from first dating scan: 08/07/2021. The below data below was generated using the 12/22/2020 JAYCE of 08/07/2021 TECHNIQUE: Real-time scanning was performed of the fetus, with image documentation and biometric measurements. Endovaginal scanning: No COMPARISON: Prior OB ultrasound dated 12/22/2020.. FINDINGS: General: A single living intrauterine gestation is present. Presentation: Vertex to Placenta: Placental position is posterior, without previa. Amniotic fluid index: 14.5 cm, normal for gestational age. heart rate: 160 beats per minute. Maternal cervical canal: 3.5 cm long; normal length is 2.5 cm or more. biometrics: Biparietal diameter: 19 weeks 5 days Head circumference: 19 weeks 5 days Abdominal circumference: 19 weeks 4 days Femur length: 19 weeks 4 days Estimated gestational age from initial scan: 19 weeks 1 day. Composite gestational age from present scan: 19 weeks 4 days Estimated weight and percentile: 300 g, 71st percentile Measurement variability in biometric dating: +/- 10 days from 12-20 weeks gestation, +/- 2 weeks from 20-30 weeks gestation, +/- 3 weeks at 30 weeks gestation or later. Anatomic survey: Neuro: Ventricles are normal at less than 10 mm. Cisterna magna and cerebellum not well seen. Nuchal skin fold: Normal at less than 6 mm between 14 and 20 weeks gestational age. Face: Not well seen. Spine: No evidence for spina bifida. Heart: Suboptimally visualized. Diaphragm: Diaphragm is intact. Stomach: Left-sided stomach is present. Kidneys: No hydronephrosis. Normal is less than 5 mm in 2nd trimester, less than 7 mm in 3rd trimester. Cord: 3 vessel cord has orthotopic insertion. Bladder: Normal in size. Extremities: All 4 extremities are visualized. IMPRESSION: 1. Single living IUP redemonstrated and interval growth is within normal limits. 2. Limited anatomic survey as above. Follow-up is recommended. Reviewed by: DAVID Rowe on 03/15/2021 5:04 PM PDT Approved by: Vane Gilmore MD on 03/15/2021 5:04 PM PDT Station ID: [id number]
== END 2021-03-14 15:11 | disposition home or self-care (01) ==
LOC: DI 15:10
PROVIDERS: ATTEND Obstetrics & Gynecology
DX: O09.92 Supervision of high risk pregnancy, unspecified, second trimester (principal); Z3A.19 19 weeks gestation of pregnancy; Z36.89 Encounter for other specified antenatal screening

== ENCOUNTER 2021-05-09 11:37 | Outpatient (CLI) | payer OTHER ==
[2021-05-09 12:56] LABS: HCT - HEMATOCRIT 35.6 % (37.0-47.0); HGB - HEMOGLOBIN 11.7 g/dL (12.0-16.0); MEAN CORPUSCULAR HGB CONC 32.9 g/dL (32.0-36.0); MEAN CORPUSCULAR VOLUME 94.4 fL (81.0-99.0); MEAN PLATELET VOLUME 10.7 fL (7.9-10.8); RED BLOOD COUNT 3.77 10^6/uL (4.20-5.40); RED CELL DISTRIBUTION WIDTH 13.3 % (12.0-15.0); WHITE BLOOD COUNT 7.8 x10^3/uL (4.8-10.8)
== END 2021-05-09 11:38 | disposition home or self-care (01) ==
LOC: LAB 11:37
PROVIDERS: ATTEND Obstetrics & Gynecology
DX: O09.90 Supervision of high risk pregnancy, unspecified, unspecified trimester (principal); Z36.89 Encounter for other specified antenatal screening
CPT/HCPCS: 36415; 82950; 85027; 86850

== ENCOUNTER 2021-05-30 14:36 | Emergency (ER) | payer OTHER ==
--- NOTE | 2021-05-30 15:00 | ED Physician Documentation ---
PD HPI DYSPNEA - Stated complaint Stated Complaint: SOA,HIGH PULSE/OB - Chief complaint Chief Complaint: Cardiac - History obtained from History obtained from: Patient - Additional information Additional information: 26-year-old G1 at 31 weeks gestation who is undergoing a work-up for potential antiphospholipid antibody syndrome but has no personal history of DVT or PE presents with a months worth of shortness of breath, worse over the last week. It is worse with exertion and with supine position. She has also had transient/intermittent right calf pain that feels like a charley horse. Sent fr om clinic to evaluate for PE. 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, Other - Past Surgical History Past Surgical History: No - Present Medications Home Medications: Ambulatory Orders Medication Instructions Recorded Confirmed Nortriptyline [Pamelor] 25 mg PO DAILY 04/13/20 12/22/20 Pnv No.95/Ferrous Fum/Folic AC 1 tab PO DAILY 12/22/20 12/22/20 [ Tablet] - Allergies Allergies/Adverse Reactions: Allergies Allergy/AdvReac Type Severity Reaction Status Date / Time No Known Drug Allergies Allergy Verified 05/30/21 14:46 - Social History Does the pt smoke?: No Smoking Status: Never smoker Does the pt drink ETOH?: No Does the pt have substance abuse?: No - Immunizations Immunizations are current?: Yes - POLST Patient has POLST: No PD ED PE NORMAL - Vitals Vital signs reviewed: Yes (Tachycardia to the 1-teens) - General General: Alert and oriented X 3, No acute distress - HEENT HEENT: PERRL, EOMI - Neck Neck: Supple, no meningeal sign, No bony TTP - Cardiac Cardiac: Other (Rapid and regular, no murmur) - Respiratory Respiratory: No respiratory distress, Clear bilaterally - Abdomen Abdomen: Non tender, Other ( heart tones done in the clinic just prior to arrival) - Back Back: No CVA TTP, No spinal TTP - Derm Derm: Normal color, Warm and dry - Extremities Extremities: No edema, No calf tenderness / cord - Neuro Neuro: Alert and oriented X 3, Normal speech Results - Vitals Vitals: Vital Signs - 24 hr 05/30/21 05/30/21 05/30/21 14:38 14:48 16:44 Temperature 36 C L Heart Rate 116 H 105 H 97 Respiratory 18 18 18 Rate Blood Pressure 125/82 H 116/82 H 108/70 O2 Saturation 99 Oxygen O2 Source Room air - EKG (time done) 1458 Rate: Rate (enter#) (114) Rhythm: Sinus tachycardia [place]: Normal Intervals: Normal RI QRS: Normal Ischemia: Normal ST segments - Labs Labs: Laboratory Tests 05/30/21 05/30/21 05/30/21 15:06 15:06 15:06 WBC 9.5 RBC 3.65 L Hgb 11.5 L Hct 33.8 L MCV 92.6 MCH 31.5 H MCHC 34.0 RDW 13.3 Plt Count 244 MPV 10.9 H Neut # (Auto) 6.9 H Lymph # (Auto) 1.3 L [place] # (Auto) 1.0 Eos # (Auto) 0.1 Baso # (Auto) 0.0 Absolute Nucleated RBC 0.00 Nucleated RBC % 0.0 D-Dimer 358.3 H Sodium 134 L Potassium 3.6 Chloride 101 Carbon Dioxide 23 Anion Gap 10.0 BUN 8 Creatinine 0.4 Estimated GFR (MDRD) 196 Glucose 94 Calcium 9.2 Total Bilirubin 0.2 AST 18 ALT 15 Alkaline Phosphatase 105 Total Protein 7.1 Albumin 3.4 Globulin 3.7 Albumin/Globulin Ratio 0.9 L - Rads (name of study) CTA Chest Radiology: EMP read contemporaneously (Neg) PD MEDICAL DECISION MAKING - ED course ED course: Discussed work-up options for her for potential thromboembolic disease. After discussion of D-dimer versus CT versus ultrasound she opted for D-dimer and ultrasound to start. Her D-dimer is 358 DDU, this would correspond to 716 FEU. Given that she is in her third trimester , it is normal for D-dimer to go up. Bilateral lower extremity ultrasound was negative for DVT. There is conflicting information on the literature as to the value of D-dimer in , Dr. Jayce David has proposed that in the third trimester, 1250 FEU should be used as the cut off for positive versus negative. The above was discussed with the patient as well as areas of uncertainty given current literature and after discussion she would like to still go ahead with the CT angiography of the chest. She understands there will be a small dose of radiation delivered not only to her but to the growing fetus as well. Departure - Departure Disposition: 01 Home, Self Care Clinical Impression: Dyspnea Qualifiers: Weeks of gestation: 31 weeks Qualified Code(s): Z3A.31 - 31 weeks gestation of Condition: Good Record reviewed to determine appropriate education?: Yes Instructions: ED Dyspnea Shortness of Breath Comments: Ultrasound of the legs and CAT scan of the chest were negative for blood clots. Blood work was at expected levels for third trimester . Return for new or worsening symptoms but follow-up with your OB and MFM specialists as scheduled.
[2021-05-30 15:18] LABS: BASOPHILS % (AUTO) 0.2 %; EOSINOPHILS # (AUTO) 0.1 10^3/uL (0.0-0.7); EOSINOPHILS % (AUTO) 0.9 %; HCT - HEMATOCRIT 33.8 % (37.0-47.0); HGB - HEMOGLOBIN 11.5 g/dL (12.0-16.0); LYMPHOCYTES # (AUTO) 1.3 10^3/uL (1.5-3.5); MEAN CORPUSCULAR HEMOGLOBIN 31.5 pg (27.0-31.0); MEAN CORPUSCULAR VOLUME 92.6 fL (81.0-99.0); MEAN PLATELET VOLUME 10.9 fL (7.9-10.8); MONOCYTES % (AUTO) 10.7 %; NEUTROPHILS # (AUTO) 6.9 10^3/uL (1.5-6.6); NEUTROPHILS % (AUTO) 72.5 %; PLT - PLATELET COUNT 244 10^3/uL (130-450); RED BLOOD COUNT 3.65 10^6/uL (4.20-5.40); RED CELL DISTRIBUTION WIDTH 13.3 % (12.0-15.0); WHITE BLOOD COUNT 9.5 x10^3/uL (4.8-10.8)
[2021-05-30 15:24] LABS: ALBUMIN 3.4 g/dL (3.2-5.5); ALBUMIN/GLOBULIN RATIO 0.9 (1.0-2.2); BILIRUBIN,TOTAL 0.2 mg/dL (0.2-1.0); CALCIUM 9.2 mg/dL (8.5-10.3); CREATININE 0.4 mg/dL (0.4-1.0); POTASSIUM 3.6 mmol/L (3.5-5.0); TOTAL PROTEIN 7.1 g/dL (6.7-8.2)
[2021-05-30] MEDS ORDERED: IOVERSOL 320 100 ML VIAL IVP ONE ×2 (15:57→20:34)
--- NOTE | 2021-05-30 16:05 | Ultrasound Report ---
PROCEDURE: Duplex Ext Veins Bilateral INDICATIONS: Limping, dyspnea, . Bilateral cramping. TECHNIQUE: Real-time imaging, as well as color and pulse Doppler interrogation, were performed of the deep veins of both legs from the inguinal ligament to the popliteal fossa. COMPARISON: None available. FINDINGS: VASCULATURE: Normal spontaneous flow and phasicity, augmentation and waveforms, and compressibility o f the vessels from the common femoral veins through the calf veins. SOFT TISSUES: No acute abnormality. IMPRESSION: 1.No evidence for deep venous thrombus in the right or left lower extremity. Reviewed by: Kj Vences MD on 05/30/2021 4:04 PM PDT Approved by: Kj Vences MD on 05/30/2021 4:04 PM PDT Station ID: [id number]
--- NOTE | 2021-05-30 16:47 | CT Report ---
PROCEDURE: ANGIO CHEST W/WO INDICATIONS: dyspnea CONTRAST: IV CONTRAST: Optiray 320 ml: 80 PO CONTRAST: *NO PO CONTRAST TECHNIQUE: After the administration of intravenous contrast, 2 mm axial images were acquired from the pulmonary apices to the posterior costophrenic angles during the arterial phase. In addition, 1 mm lung kernel and 5 mm soft tissue kernel reconstructions were performed. 3-dimensional coronal oblique maximum int ensity projection (MIP) reformats, 8 mm axial MIP, and 5 mm coronal and sagittal MPR reformats were t hen performed through the thorax. For radiation dose reduction, the following was used: automated exp osure control, adjustment of mA and/or kV according to patient size. COMPARISON: None. FINDINGS: Image quality: Excellent. Pulmonary arteries: No pulmonary artery filling defect demonstrated. Lungs and pleura: Lungs and pleural spaces are clear. Central airways unremarkable. Mediastinum: Normal heart size. No pericardial effusion. No threshold enlarged mediastinal or hilar l ymph node. Nonspecific soft tissue density abnormality within the distal thoracic esophagus measuring up to 4 cm. Bones and chest wall: No suspicious lytic or blastic osseous lesion. No acute osseous finding. No axi llary lymphadenopathy. Abdomen: Grossly unremarkable upper abdomen with caveat that arterial phase contrast evaluation is li mited. IMPRESSION: No pulmonary embolism demonstrated. Nonspecific soft tissue density within the distal thoracic esophagus measuring up to 4 cm. This could represent a retained food bolus versus a soft tissue density mass. Direct visualization versus esoph agram recommended for further evaluation. CLINICAL RECOMMENDATION STATEMENTS: In patients <35 years with an ITN detected on CT, MRI, or extrathyroidal ultrasound, the Committee re commends further evaluation with dedicated thyroid ultrasound if the nodule is "e1 cm and has no susp icious imaging features, and if the patient has normal life expectancy. In patients "e35 years with an ITN detected on CT, MRI, or extrathyroidal ultrasound, the Committee r ecommends further evaluation with dedicated thyroid ultrasound if the nodule is "e1.5 cm and has no s uspicious imaging features, and if the patient has normal life expectancy. (ACR, 2014) Reviewed by: Francisco J Bray MD on 05/30/2021 4:46 PM PDT Approved by: Francisco J Bray MD on 05/30/2021 4:46 PM PDT Station ID: [id number]
[2021-05-30 17:05] VITALS: BP 106/70
== END 2021-05-30 17:06 | disposition home or self-care (01) ==
LOC: ED 14:36
DX: O26.893 Other specified pregnancy related conditions, third trimester (principal); R06.00 Dyspnea, unspecified; Z3A.31 31 weeks gestation of pregnancy
CPT/HCPCS: 36415; 71275; 80053; 85025; 85379; 93005; 93970; 99284; Q9967

== ENCOUNTER 2021-06-07 23:30 | Emergency (ER) | payer OTHER ==
--- NOTE | 2021-06-07 23:51 | ED Physician Documentation ---
History of Present Illness - Stated complaint Stated Complaint: SI, MHE - Chief complaint Chief Complaint: MHE - History obtained from History obtained from: Patient - Additonal information Additional information: 26yF presents after being sent in by Dr. Green for depressive symptoms and self- injurious behavior. Patient has been cutting her BL legs and contacted malariologist in regards to this and was referred to the emergency department. Patient states that when she was younger she was hospitalized for self-injurious behavior and attempted overdose. recently, over the past month she's been cutting her legs. Dr. Silva just started her on lamictal 1 month ago as a mood stabilizer. Also on vitamins and nortriptaline for leg pain. patient denies SI, stating she is cutting her legs as a coping mechanism when she has a panic attack. does endorse anxiety and depressive symptoms. just moved out of state due to . denies HI or AVH. denies obstetric complaint. normal movement. Review of Systems Ten Systems: 10 systems reviewed and negative Psychiatric: reports: Depressed, Anxiety. 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 - Past Surgical History Past Surgical History: No - Present Medications Home Medications: Ambulatory Orders Medication Instructions Recorded Confirmed Nortriptyline [Pamelor] 25 mg PO DAILY 04/13/20 06/08/21 Pnv No.95/Ferrous Fum/Folic AC 1 tab PO DAILY 12/22/20 06/08/21 [ Tablet] Famotidine [Pepcid] 40 mg PO QPM 06/08/21 06/08/21 lamoTRIgine [LaMICtal] 25 mg PO DAILY 06/08/21 06/08/21 - Allergies Allergies/Adverse Reactions: Allergies Allergy/AdvReac Type Severity Reaction Status Date / Time No Known Drug Allergies Allergy Verified 06/07/21 23:43 - Social History Does the pt smoke?: No Smoking Status: Never smoker Does the pt drink ETOH?: No Does the pt have substance abuse?: No - Immunizations Immunizations are current?: Yes - POLST Patient has POLST: No PD ED PE NORMAL - Vitals Vital signs reviewed: Yes - General General: Alert and oriented X 3, No acute distress, Well developed/nourished - HEENT HEENT: Atraumatic, PERRL, EOMI - Neck Neck: Supple, no meningeal sign - Cardiac Cardiac: RRR - Respiratory Respiratory: No respiratory distress, Clear bilaterally - Abdomen Abdomen: Non tender, Non distended - Derm Derm: Normal color, Warm and dry, Other (multiple abrasions and superficial lacerations to BL lateral legs.) - Extremities Extremities: Other (2+ DP and pt pulses. soft compartments of BL legs. normal sensation, cap refill, strength. ) - Neuro Neuro: Alert and oriented X 3 - Psych Psych: Other (anxious/depressed mood. normal affect) Results - Vitals Vitals: Vital Signs - 24 hr 06/07/21 06/08/21 23:30 01:50 Temperature 36.3 C L 36.4 C L Heart Rate 96 76 Respiratory 16 16 Rate Blood Pressure 114/82 H 100/68 O2 Saturation 99 100 Oxygen O2 Source Room air - Labs Labs: Laboratory Tests 06/07/21 06/07/21 06/07/21 23:59 23:59 23:59 WBC 9.9 RBC 3.65 L Hgb 11.2 L Hct 33.2 L MCV 91.0 MCH 30.7 MCHC 33.7 RDW 13.2 Plt Count 257 MPV 10.7 Neut # (Auto) 6.6 Lymph # (Auto) 2.1 [place] # (Auto) 1.0 Eos # (Auto) 0.1 Baso # (Auto) 0.0 Absolute Nucleated RBC 0.00 Nucleated RBC % 0.0 Sodium 134 L Potassium 3.6 Chloride 102 Carbon Dioxide 21 Anion Gap 11.0 BUN 8 Creatinine 0.5 Estimated GFR (MDRD) 152 Glucose 100 Calcium 8.9 Total Bilirubin 0.3 AST 21 ALT 15 Alkaline Phosphatase 119 Total Protein 7.1 Albumin 3.4 Globulin 3.7 Albumin/Globulin Ratio 0.9 L Lipase 40 TSH 4.17 Urine Color Urine Clarity Urine pH Ur Specific [place] Urine Protein Urine Glucose (UA) Urine Ketones Urine Occult Blood Urine Nitrite Urine Bilirubin Urine Urobilinogen Ur Leukocyte Esterase Ur Microscopic Review Urine Culture Comments Urine HCG, Qual Salicylates < 6.0 Urine Opiates Screen Ur Oxycodone Screen Urine Methadone Screen Ur Propoxyphene Screen Acetaminophen < 10 L Ur Barbiturates Screen Ur Tricyclics Screen Ur Phencyclidine Scrn Ur Amphetamine Screen U Methamphetamines Scrn U Benzodiazepines Scrn Urine Cocaine Screen U Cannabinoids Screen Ethyl Alcohol < 5.0 06/07/21 23:59 WBC RBC Hgb Hct MCV MCH MCHC RDW Plt Count MPV Neut # (Auto) Lymph # (Auto) [place] # (Auto) Eos # (Auto) Baso # (Auto) Absolute Nucleated RBC Nucleated RBC % Sodium Potassium Chloride Carbon Dioxide Anion Gap BUN Creatinine Estimated GFR (MDRD) Glucose Calcium Total Bilirubin AST ALT Alkaline Phosphatase Total Protein Albumin Globulin Albumin/Globulin Ratio Lipase TSH Urine Color YELLOW Urine Clarity CLEAR Urine pH 5.5 Ur Specific [place] >=1.030 H Urine Protein NEGATIVE Urine Glucose (UA) 100 H Urine Ketones NEGATIVE Urine Occult Blood TRACE-INTA Urine Nitrite NEGATIVE Urine Bilirubin NEGATIVE Urine Urobilinogen 0.2 (NORMAL) Ur Leukocyte Esterase NEGATIVE Ur Microscopic Review NOT INDICATED Urine Culture Comments NOT INDICATED Urine HCG, Qual POSITIVE Salicylates Urine Opiates Screen NEGATIVE Ur Oxycodone Screen NEGATIVE Urine Methadone Screen NEGATIVE Ur Propoxyphene Screen NEGATIVE Acetaminophen Ur Barbiturates Screen NEGATIVE Ur Tricyclics Screen POSITIVE H Ur Phencyclidine Scrn NEGATIVE Ur Amphetamine Screen NEGATIVE U Methamphetamines Scrn NEGATIVE U Benzodiazepines Scrn NEGATIVE Urine Cocaine Screen NEGATIVE U Cannabinoids Screen NEGATIVE Ethyl Alcohol Procedures - Laceration (location) Lower extremity Length in cm: 10 Wound type: Linear Neurovascular status: Sensory intact, Motor intact, Vascular intact Tendon involvement: Tendon intact Anesthesia: Lidocaine 1%, With bicarb Wound preparation: Irrigated copiously NS Skin layer closure: Nylon, Interrupted, Size #-0 - enter number (4), Sutures - enter # (10) Other: Patient tolerated well, No complications, Dressing applied, Tetanus UTD, Other (note that this was 4 superficial lacerations , one to each leg) PD MEDICAL DECISION MAKING - ED course ED course: normal FHR on ob monitoring. Sutures placed. patient expressing wish for outpatient psychiatric resources. Denies any SI or suicidal intent, stating her cutting behavior is strictly a coping mechanism. Patient to see Social work and to be endorsed to daytime MD Dr. Eldridge. Departure - Departure Clinical Impression: Laceration, Depression, Anxiety, Self-injurious behavior Condition: Stable Instructions: ED Laceration All Comments: YOu had 10 stitches placed in the emergency department. You should have these removed in 14 days. Please monitor for signs of infection and return if you have any concerns. Please follow up with the mental health resources our social studies teacher discussed. Please also call your primary doctor for follow up. Return to the emergency department immediately if you have further thoughts of self-harm, or if you develop a plan to kill yourself or hurt anyone else. National suicide prevention hotline
[2021-06-08 00:04] LABS: BASOPHILS % (AUTO) 0.3 %; EOSINOPHILS # (AUTO) 0.1 10^3/uL (0.0-0.7); EOSINOPHILS % (AUTO) 1.2 %; HCT - HEMATOCRIT 33.2 % (37.0-47.0); HGB - HEMOGLOBIN 11.2 g/dL (12.0-16.0); LYMPHOCYTES # (AUTO) 2.1 10^3/uL (1.5-3.5); LYMPHOCYTES % (AUTO) 20.7 %; MEAN CORPUSCULAR HEMOGLOBIN 30.7 pg (27.0-31.0); MEAN CORPUSCULAR HGB CONC 33.7 g/dL (32.0-36.0); MEAN PLATELET VOLUME 10.7 fL (7.9-10.8); NEUTROPHILS # (AUTO) 6.6 10^3/uL (1.5-6.6); NEUTROPHILS % (AUTO) 66.9 %; PLT - PLATELET COUNT 257 10^3/uL (130-450); RED BLOOD COUNT 3.65 10^6/uL (4.20-5.40); RED CELL DISTRIBUTION WIDTH 13.2 % (12.0-15.0); WHITE BLOOD COUNT 9.9 x10^3/uL (4.8-10.8)
[2021-06-08 00:05] LABS: MUDS CUTOFF CONCENTRATIONS CUTOFF CONC BELOW:
[2021-06-08 00:07] LABS: BILIRUBIN,URINE NEGATIVE (NEGATIVE); GLUCOSE, URINE (UA) 100 mg/dL (NEGATIVE); KETONES,URINE (UA) NEGATIVE (NEGATIVE); LEUKOCYTE ESTERASE, URINE NEGATIVE (NEGATIVE); NITRITE,URINE NEGATIVE (NEGATIVE); OCCULT BLOOD,URINE TRACE-INTA (NEGATIVE); PH,URINE 5.5 PH (5.0-7.5); PROTEIN,URINE NEGATIVE (NEGATIVE); UROBILINOGEN,URINE 0.2 (NORMAL) E.U./dL (NORMAL)
[2021-06-08 00:08] LABS: CLARITY,URINE CLEAR (CLEAR); HCG UR QUAL POSITIVE
[2021-06-08 00:17] LABS: AMPHETAMINE SCREEN,URINE NEGATIVE (NEGATIVE); BARBITURATE SCREEN,UR NEGATIVE (NEGATIVE); BENZODIAZEPINES SCREEN, URINE NEGATIVE (NEGATIVE); COCAINE SCREEN URINE NEGATIVE (NEGATIVE); METHADONE SCREEN, URINE NEGATIVE (NEGATIVE); METHAMPHETAMINES SCREEN, URINE NEGATIVE (NEGATIVE); OPIATE SCREEN, URINE NEGATIVE (NEGATIVE); OXYCODONE SCREEN, URINE NEGATIVE (NEGATIVE); PROPOXYPHENE SCREEN, URINE NEGATIVE (NEGATIVE); THC CANNABINOID SCREEN, URINE NEGATIVE (NEGATIVE); TRICYCLIC ANTIDEPRESSANT,URINE POSITIVE (NEGATIVE)
[2021-06-08 00:20] LABS: ACETAMINOPHEN < 10 ug/mL (10-30); ALBUMIN 3.4 g/dL (3.2-5.5); ALBUMIN/GLOBULIN RATIO 0.9 (1.0-2.2); ALKALINE PHOSPHATASE 119 IU/L (42-121); ALT ALANINE AMINOTRANSFERASE 15 IU/L (10-60); AST ASPARTATE AMINOTRANSFERASE 21 IU/L (10-42); BILIRUBIN,TOTAL 0.3 mg/dL (0.2-1.0); BUN - BLOOD UREA NITROGEN 8 mg/dL (6-20); CALCIUM 8.9 mg/dL (8.5-10.3); CARBON DIOXIDE - CO2 21 mmol/L (21-32); CHLORIDE 102 mmol/L (101-111); CREATININE 0.5 mg/dL (0.4-1.0); ETOH - ETHANOL < 5.0 mg/dL; GFR - MDRD 152 (>89); GLUCOSE 100 mg/dL (70-100); LIPASE 40 U/L (22-51); POTASSIUM 3.6 mmol/L (3.5-5.0); SALICYLATE < 6.0 mg/dL; SODIUM 134 mmol/L (135-145); TOTAL PROTEIN 7.1 g/dL (6.7-8.2)
[2021-06-08] MEDS ORDERED: BACITRACIN ZINC OINT 1 PACKET TOP STA (00:51)
[2021-06-08] MEDS ORDERED: diphenhydrAMINE 25 MG CAPSULE PO STA (02:03)
[2021-06-08] MEDS ORDERED: BUFFERED LIDOCAINE 10 ML SYRINGE SUBQ STA ×2 (02:04→02:33)
[2021-06-08 07:18] VITALS: BP 110/68
--- NOTE | 2021-06-08 10:38 | ED Physician Documentation ---
ED Addendum - Addendum Addendum: 06/08/21 10:38 Patient signed out to me pending social work consultation. Briefly this is a 26-year-old woman who is who has been cutting. She is contracted for safety with the healthcare social worker and I also saw her at bedside. She is comfortable with discharge and agrees that she has no active suicidal ideation. She did want some medication for anxiety. Hydroxyzine is safe in but discussed with her that she should take it as little as possible and use other methods for anxiety relief, nonpharmacologic, if she is able. She voices understanding. We also discussed wound care instructions. Disposition: Discharged home Condition: Stable Diagnosis: 1. Depression 2. Anxiety 3. 4. Leg laceration,
== END 2021-06-08 10:55 | disposition home or self-care (01) ==
LOC: ED 23:30
DX: O99.340 Other mental disorders complicating pregnancy, unspecified trimester (principal); F32.9 Major depressive disorder, single episode, unspecified; F41.9 Anxiety disorder, unspecified; O9A.219 Injury, poisoning and certain other consequences of external causes complicating pregnancy, unspecified trimester; S81.812A Laceration without foreign body, left lower leg, initial encounter; S81.811A Laceration without foreign body, right lower leg, initial encounter; X78.9XXA Intentional self-harm by unspecified sharp object, initial encounter; Z3A.00 Weeks of gestation of pregnancy not specified
CPT/HCPCS: 12004; 36415; 80053; 80306; 80307; 80320; 80329; 81003; 81025; 83690; 84443; 85025; 99283; A9270; 81001; 87086

== ENCOUNTER 2021-07-04 08:00 | Outpatient (CLI) | payer OTHER | END 2021-07-04 23:59 | disposition home or self-care (01) | LOC: LAB.WC 08:00 | PROVIDERS: ATTEND Obstetrics & Gynecology | DX: O09.90 Supervision of high risk pregnancy, unspecified, unspecified trimester (principal); Z36.85 Encounter for antenatal screening for Streptococcus B | CPT/HCPCS: 87797 ==

== ENCOUNTER 2021-07-06 14:43 | Outpatient (CLI) | payer OTHER ==
--- NOTE | 2021-07-06 16:44 | Ultrasound Report ---
PROCEDURE: OB F/U or Repeat INDICATIONS: SUPERVISION OF HIGH RISK OUTSIDE/PRIOR DATING DATA: Last menstrual period (LMP): 10/26/2020. LMP-based estimated date of delivery (JAYCE): 08/02/2021. First dating scan (date and location): 12/22/2020 [facility]. Estimated date of delivery (JAYCE) from first dating scan: 08/07/2021. The below data below was generated using the ultrasound JAYCE of 08/07/2021 TECHNIQUE: Real-time scanning was performed of the fetus, with image documentation and biometric measurements. COMPARISON: None. FINDINGS: General: A single living intrauterine gestation is present. Presentation: Vertex Placenta: Placental position is posterior, without previa. Amniotic fluid index: 15.8 cm, normal for gestational age. heart rate: 164 beats per minute. Maternal cervical canal: 2.9 cm long; normal length is 2.5 cm or more. biometrics: Biparietal diameter: 9.4 cm. 38 weeks 2 days Head circumference: 33.1 cm. 37 weeks 5 days. Abdominal circumference: 30.1 cm. 34 weeks 0 days. Femur length: 6.6 cm. 34 weeks 0 days. Estimated gestational age from initial scan: 35 weeks 3 days. Composite gestational age from present scan: 36 weeks 0 days. Estimated weight and percentile: 2524 g. 31.6 percentile. The chest/diaphragm, stomach/abdomen, bilateral renal regions, and urinary bladder/pelvis are normal on this ultrasound. Completion of anatomic scan was performed on prior ultrasounds. Measurement variability in biometric dating: +/- 10 days from 12-20 weeks gestation, +/- 2 weeks from 20-30 weeks gestation, +/- 3 weeks at 30 weeks gestation or more. Other: Not applicable. IMPRESSION: 1. Ultrasound gestational age of 36 weeks 0 days by present scan, 35 weeks 3 days by initial scan. 2. Normal anatomy on today's scan as above. 3. The cervix is closed. 4. Normal TRICIA. 5. Estimated weight 2524 g. 31.6 percentile. Reviewed by: Jorje Laureano on 07/06/2021 4:43 PM PST Approved by: Jorje Laureano on 07/06/2021 4:43 PM PST Station ID: [id number]
== END 2021-07-06 14:44 | disposition home or self-care (01) ==
LOC: DI 14:43
PROVIDERS: ATTEND Obstetrics & Gynecology
DX: O09.93 Supervision of high risk pregnancy, unspecified, third trimester (principal); Z3A.36 36 weeks gestation of pregnancy

== ENCOUNTER 2021-08-09 05:58 | Inpatient (IN) | payer MEDICAID, OTHER ==
[2021-08-09] MEDS ORDERED: CARBOPROST TROMETHAMINE 250 MCG/ML AMP IM PRN (06:26)
[2021-08-09] MEDS ORDERED: TRANEXAMIC ACID IN NACL 1,000 MG/100 ML BAG IV PRN (06:26)
[2021-08-09] MEDS ORDERED: OXYTOCIN 10 UNIT/ML VIAL IM PRN (06:26)
[2021-08-09] MEDS ORDERED: LIDOCAINE-MPF 1% 30 ML VIAL ID PRN (06:26)
[2021-08-09] MEDS ORDERED: miSOPROStoL 200 MCG TABLET BC PRN (06:26)
[2021-08-09] MEDS ORDERED: OXYTOCIN/SODIUM CHLORIDE 500 ML IV PRN ×2 (06:26→20:37)
[2021-08-09] MEDS ORDERED: SODIUM CHLORIDE FLUSH 0.9% 10 ML SYRINGE IVP PRN ×2 (06:26→20:37)
[2021-08-09] MEDS ORDERED: METHYLERGONOVINE 0.2 MG/ML VIAL IM PRN (06:26)
--- NOTE | 2021-08-09 06:34 | HISTORY & PHYSICAL EXAMINATION ---
Admit History - Visit Reason Visit Reason: Contractions - : 3 Parity: 0 Complications This : positive: Other (depression, lupus) Smoking Status: Never smoker - Mother's Labs Mother's RH: positive: Positive GBS: positive: Group B Step Negative - Other Maternal History Other Maternal History: The patient presents with complaints of contractions. She does report bloody show. She notes positive movement. She denies leakage of fluid. She reports a medical history complicated by scoliosis, herniated disc, and work-up for lupus versus connective tissue disease secondary to skin abnormalities and fibromyalgia. Past medical historydepression, scoliosis, herniated disc, Past surgical historytonsillectomy Allergies no known drug allergies labs- O+ Rubella immune RPR negative Hep B negative HIV negative 1 hour 96 GBS negative Quad screen negative Meds/Allgy - Home Medications Home Medications: Ambulatory Orders Medication Instructions Recorded Confirmed Nortriptyline [Pamelor] 25 mg PO DAILY 04/13/20 06/08/21 Pnv No.95/Ferrous Fum/Folic AC 1 tab PO DAILY 12/22/20 06/08/21 [ Tablet] Famotidine [Pepcid] 40 mg PO QPM 06/08/21 06/08/21 hydrOXYzine HCL [Hydroxyzine HCl] 25 mg PO TID PRN #20 tablet 06/08/21 lamoTRIgine [LaMICtal] 25 mg PO DAILY 06/08/21 06/08/21 - Allergies Allergies/Adverse Reactions: Allergies Allergy/AdvReac Type Severity Reaction Status Date / Time No Known Drug Allergies Allergy Verified 06/07/21 23:43 Physical - Abdominal Exam Contraction Frequency (min/apart): 5 Uterine Resting Tone: positive: Soft - Monitoring Heart Rate Baseline: 140 Strip Review: positive: Category II - Presentation Presentation: positive: Vertex - Vaginal Exam Membranes: positive: Membranes intact Dilation (in cm): 3 Effacement (%): 75 Station: positive: -2 Cervical Position: positive: Midposition Plan for Labor - Plan For Labor Plan for Labor: 26-year-old G3, P0 at 41 weeks 0 days who presents with complaints of contractions. 1. Uterine contractions-patient reports contractions every 2 to 5 minutes. Irregular contractions noted on toco on presentation cervix was 3/90/-1 on exam. Patient with periods of minimal variability however positive acceleration was noted with sterile vaginal exam. We will resuscitate with IV hydration position change with plan for induction of labor with category 1 tracing noted.
[2021-08-09] MEDS: LACTATED RINGERS 1,000 ML IV SCH ×3 (06:49→17:08)
--- NOTE | 2021-08-09 08:32 | ANESTHESIA ---
Pre-Anesthesia VS, & Labs - Diagnosis active labor - Procedure labor epidural Vital Signs: Temp Pulse Resp BP Pulse Ox 36.7 C 94 16 131/87 H 100 08/09/21 08:04 08/09/21 07:44 08/09/21 07:44 08/09/21 07:44 08/09/21 07:44 Height: 5 ft 9 in Weight (kg): 80.739 kg Body Mass Index: 26.2 BMI Classification: Overweight - NPO Other (pt eating breakfast at 0830) - Is Patient ?: Yes Home Medications and Allergies Active Medications Carboprost Tromethamine (Carboprost Tromethamine 250 Mcg/Ml Amp) 250 mcg IM Q15M PRN PRN Reason: Step 4: Hemorrhage protocol Stop: 08/14/21 06:27 Oxytocin/Sodium Chloride (Pitocin/Sodium Chloride) 500 mls @ 999 mls/hr IV PRN PRN; Protocol PRN Reason: POST- HEMORR PREVENTION Stop: 08/14/21 06:27 Tranexamic Acid (Tranexamic 1,000 Mg/100ml-Nacl) 1,000 mg in 100 mls @ 600 mls/hr IV .ONCE PRN PRN Reason: EBL >1200mL and within 3hr Stop: 08/14/21 06:27 Lactated Ringer's (Lr) 1,000 mls @ 100 mls/hr IV .Q10H CORDELIA Last Admin: 08/09/21 07:33 Dose: 999 mls/hr Documented by: Lidocaine HCl (Lidocaine-Mpf 1% 30 Ml Vial) 30 ml ID .ONCE PRN PRN Reason: PERINEAL REPAIR Stop: 08/14/21 06:27 Methylergonovine Maleate (Methylergonovine 0.2 Mg/Ml Vial) 0.2 mg IM .ONCE PRN PRN Reason: Step 2: Hemorrhage protocol Stop: 08/14/21 06:27 Misoprostol (Misoprostol 200 Mcg Tablet) 800 mcg BC .ONCE PRN PRN Reason: Step 3: Hemorrhage protocol Stop: 08/14/21 06:27 Oxytocin (Oxytocin 10 Unit/Ml Vial) 10 unit IM .ONCE PRN PRN Reason: Step one: If no IV access Stop: 08/14/21 06:27 Sodium Chloride (Sodium Chloride Flush 0.9% 10 Ml Syringe) 10 ml IVP 01 00,0900,1700 CORDELIA Sodium Chloride (Sodium Chloride Flush 0.9% 10 Ml Syringe) 10 ml IVP PRN PRN PRN Reason: NEEDED PER PROVIDER ORDERS Nortriptyline [Pamelor] 25 mg PO DAILY 04/13/20 Pnv No.95/Ferrous Fum/Folic AC [ Tablet] 1 tab PO DAILY 12/22/20 Famotidine [Pepcid] 40 mg PO QPM 06/08/21 lamoTRIgine [LaMICtal] 25 mg PO DAILY 06/08/21 Allergies/Adverse Reactions: Allergies Allergy/AdvReac Type Severity Reaction Status Date / Time No Known Drug Allergies Allergy Verified 08/09/21 07:28 Anes History & Medical History - Anesthetic History Anesthesia Complications: reports: No previous complications Family history of Anesthesia Complications: Denies Family history of Malignant Hyperthermia: Denies - Medical History Urinary: reports: None, Other Smoking Status: Former smoker Psychosocial: reports: Depression, Anxiety History of Cancer?: No - Obstetrical History : 3 Parity: 0 Complications: reports: Other (depression, lupus) Exam General: Alert, Oriented x3, Cooperative Dental: WNL Mouth Openin Fingerbreadth Neck Mobility: Normal Mallampati classification: I Thyromental Distance: 4-6 cm Respiratory: Lungs clear Cardiovascular: Regular rate Plan Anesthesia Type: Epidural Consent for Procedure(s) Verified and Reviewed: Yes Code Status: Attempt Resuscitation ASA classification: 2-Mild systemic disease Is this case an emergency?: No
[2021-08-09 08:40] LABS: BILIRUBIN,URINE NEGATIVE (NEGATIVE); CLARITY,URINE CLEAR (CLEAR); GLUCOSE, URINE (UA) 100 mg/dL (NEGATIVE); KETONES,URINE (UA) NEGATIVE (NEGATIVE); LEUKOCYTE ESTERASE, URINE NEGATIVE (NEGATIVE); NITRITE,URINE NEGATIVE (NEGATIVE); OCCULT BLOOD,URINE NEGATIVE (NEGATIVE); PROTEIN,URINE NEGATIVE (NEGATIVE); UROBILINOGEN,URINE 0.2 (NORMAL) E.U./dL (NORMAL)
[2021-08-09] MEDS ORDERED: SODIUM CHLORIDE FLUSH 0.9% 10 ML SYRINGE IVP SCH (09:00)
--- NOTE | 2021-08-09 09:43 | PROVIDER PROGRESS NOTE ---
Labor Progress Note - Uterine Monitoring Uterine Monitoring Mode: positive: External toco Contraction Frequency (min/apart): 4-7 Contraction Intensity: positive: Mild Uterine Resting Tone: positive: Soft - Monitoring Monitor Mode: positive: External ultrasound Heart Rate Baseline: 140 Heart Rate Variability: positive: Minimal (0-5 bpm) Accelerations: positive: Present, 15x15 Decelerations: positive: None Strip Review: positive: Category II - Vaginal Exam Dilation (in cm): 4 Effacement (%): 60 - Labor Progress Note Labor Progress Note/Additional Text: Patient is dilating on her own. Will recheck in 2 hours and consider amniotomy. Maintenance fluids currently at 100ml/hour. Did improve heart tracing after first liter was received. Will initiate oxytocin for hypotonic contractions if she stops progressing.
[2021-08-09 09:45] LABS: WHITE BLOOD COUNT 11.6 x10^3/uL (4.8-10.8)
[2021-08-09 09:46] LABS: BASOPHILS # (AUTO) 0.1 10^3/uL (0.0-0.1); BASOPHILS % (AUTO) 0.4 %; EOSINOPHILS # (AUTO) 0.1 10^3/uL (0.0-0.7); HCT - HEMATOCRIT 39.7 % (37.0-47.0); HGB - HEMOGLOBIN 13.1 g/dL (12.0-16.0); LYMPHOCYTES % (AUTO) 16.9 %; MEAN CORPUSCULAR HEMOGLOBIN 30.5 pg (27.0-31.0); MEAN CORPUSCULAR VOLUME 92.3 fL (81.0-99.0); MEAN PLATELET VOLUME 12.9 fL (7.9-10.8); MONOCYTES # (AUTO) 1.3 10^3/uL (0.0-1.0); MONOCYTES % (AUTO) 10.8 %; NEUTROPHILS # (AUTO) 8.1 10^3/uL (1.5-6.6); NEUTROPHILS % (AUTO) 69.3 %; PLT - PLATELET COUNT 225 10^3/uL (130-450); RED CELL DISTRIBUTION WIDTH 14.7 % (12.0-15.0)
[2021-08-09] MEDS ORDERED: ROPIVACAINE 0.2% 200 MG/100 ML BAG EP ONE (12:23)
[2021-08-09] MEDS ORDERED: OXYTOCIN/SODIUM CHLORIDE 500 ML IV SCH (13:00)
[2021-08-09] MEDS ORDERED: METOCLOPRAMIDE 10 MG/2 ML VIAL IVP PRN ×2 (13:03→21:42)
[2021-08-09] MEDS ORDERED: ePHEDrine 50 MG/ML VIAL IVP PRN ×2 (13:03→21:42)
[2021-08-09] MEDS ORDERED: diphenhydrAMINE INJ 50 MG/ML VIAL IVP PRN (13:03)
[2021-08-09] MEDS ORDERED: ROPIVACAINE 0.2% 200 MG/100 ML BAG EP PRN (13:03)
[2021-08-09] MEDS ORDERED: NALOXONE 0.4 MG/ML VIAL IVP PRN ×2 (13:03→21:42)
[2021-08-09] MEDS ORDERED: NALBUPHINE 10 MG/ML AMP IVP PRN (13:03)
[2021-08-09] MEDS ORDERED: ONDANSETRON 4 MG/2 ML VIAL IVP PRN ×2 (13:03→21:42)
--- NOTE | 2021-08-09 13:05 | ANESTHESIA PROCEDURE NOTE ---
Anesthesia Epidural Template - Patient Report Patient Reports: positive: Pain controlled - Plan Plan: positive: Continue current management
--- NOTE | 2021-08-09 13:23 | PROVIDER PROGRESS NOTE ---
Subjective - Prog Note Date Prog Note Date: 08/09/21 Prog Note Time: 12:31 - Subjective Subjective: Patient is mostly comfortable. Contractions have petered out. SVE /-1 Mild variability no accels or decels VAS for return of moderate variability and Cat I tracing Consent for pitocin augmentation obtained Starting pitocin per protocol Epidural ordered for placement with start of pitocin. Should be upgraded to in-patient status. Objective - Vital Signs/Intake & Output Vital Signs: Vital Signs x48h Temp Pulse Pulse Resp BP BP Pulse Ox 08/09/21 08:04 98.1 F 08/09/21 07:44 98.1 F 94 16 131/87 H 100 08/09/21 06:35 98.8 F 91 19 125/77 Intake & Output: Intake & Output 08/06/21 08/07/21 08/08/21 08/09/21 23:59 23:59 23:59 23:59 Intake Total 732.6 Balance 732.6 - Lab Results Fish Bones: 08/09/21 06:49 Other Labs: Lab Results x24hrs 08/09/21 08/09/21 08/09/21 Range/Units 08:01 06:49 06:49 WBC 11.6 H (4.8-10.8) x10^3/uL RBC 4.30 (4.20-5.40) 10^6/uL Hgb 13.1 (12.0-16.0) g/dL Hct 39.7 (37.0-47.0) % MCV 92.3 (81.0-99.0) fL MCH 30.5 (27.0-31.0) pg MCHC 33.0 (32.0-36.0) g/dL RDW 14.7 (12.0-15.0) % Plt Count 225 (130-450) 10^3/uL MPV 12.9 H (7.9-10.8) fL Neut # (Auto) 8.1 H (1.5-6.6) 10^3/uL Lymph # (Auto) 2.0 (1.5-3.5) 10^3/uL [place] # (Auto) 1.3 H (0.0-1.0) 10^3/uL Eos # (Auto) 0.1 (0.0-0.7) 10^3/uL Baso # (Auto) 0.1 (0.0-0.1) 10^3/uL Urine Color YELLOW Urine Clarity CLEAR (CLEAR) Urine pH 6.0 (5.0-7.5) PH Ur Specific [place] 1.010 (1.002-1.030) Urine Protein NEGATIVE (NEGATIVE) mg/dL Urine Glucose (UA) 100 H (NEGATIVE) mg/dL Urine Ketones NEGATIVE (NEGATIVE) mg/dL Urine Occult Blood NEGATIVE (NEGATIVE) Urine Nitrite NEGATIVE (NEGATIVE) Urine Bilirubin NEGATIVE (NEGATIVE) Urine Urobilinogen 0.2 (NORMAL) (NORMAL) E.U./dL Ur Leukocyte Esterase NEGATIVE (NEGATIVE) Ur Microscopic Review NOT INDICATED Urine Culture Comments NOT INDICATED Blood Type O POSITIVE Antibody Screen NEGATIVE
--- NOTE | 2021-08-09 16:55 | PROVIDER PROGRESS NOTE ---
Subjective - Prog Note Date Prog Note Date: 08/09/21 Prog Note Time: 16:37 Objective - Vital Signs/Intake & Output Intake & Output: Intake & Output 08/06/21 08/07/21 08/08/21 08/09/21 23:59 23:59 23:59 23:59 Intake Total 1082.6 Output Total 975 Balance 107.6 - Lab Results Fish Bones: 08/09/21 06:49 Other Labs: Lab Results x24hrs 08/09/21 08/09/21 08/09/21 Range/Units 08:01 06:49 06:49 WBC 11.6 H (4.8-10.8) x10^3/uL RBC 4.30 (4.20-5.40) 10^6/uL Hgb 13.1 (12.0-16.0) g/dL Hct 39.7 (37.0-47.0) % MCV 92.3 (81.0-99.0) fL MCH 30.5 (27.0-31.0) pg MCHC 33.0 (32.0-36.0) g/dL RDW 14.7 (12.0-15.0) % Plt Count 225 (130-450) 10^3/uL MPV 12.9 H (7.9-10.8) fL Neut # (Auto) 8.1 H (1.5-6.6) 10^3/uL Lymph # (Auto) 2.0 (1.5-3.5) 10^3/uL [place] # (Auto) 1.3 H (0.0-1.0) 10^3/uL Eos # (Auto) 0.1 (0.0-0.7) 10^3/uL Baso # (Auto) 0.1 (0.0-0.1) 10^3/uL Urine Color YELLOW Urine Clarity CLEAR (CLEAR) Urine pH 6.0 (5.0-7.5) PH Ur Specific [place] 1.010 (1.002-1.030) Urine Protein NEGATIVE (NEGATIVE) mg/dL Urine Glucose (UA) 100 H (NEGATIVE) mg/dL Urine Ketones NEGATIVE (NEGATIVE) mg/dL Urine Occult Blood NEGATIVE (NEGATIVE) Urine Nitrite NEGATIVE (NEGATIVE) Urine Bilirubin NEGATIVE (NEGATIVE) Urine Urobilinogen 0.2 (NORMAL) (NORMAL) E.U./dL Ur Leukocyte Esterase NEGATIVE (NEGATIVE) Ur Microscopic Review NOT INDICATED Urine Culture Comments NOT INDICATED Blood Type O POSITIVE Antibody Screen NEGATIVE
[2021-08-09] MEDS ORDERED: CALCIUM CARBONATE CHEW 500 MG TABLET PO SCH (17:00)
[2021-08-09] MEDS ORDERED: FAMOTIDINE 20 MG/2 ML VIAL IVP SCH (18:19)
[2021-08-09] MEDS ORDERED: ceFAZolin 2 GM in SODIUM CHLORIDE 0.9% 100ML 100 ML IV ONE (18:45)
--- NOTE | 2021-08-09 18:47 | PROVIDER PROGRESS NOTE ---
Subjective - Prog Note Date Prog Note Date: 08/09/21 Prog Note Time: 18:46 - Subjective Subjective: Patient was on pitocin 4 mu/min at 16:45. SVE was 5/C/0 and patient underwent AROM with passage of bloody fluid. At 18:20, started to develop recurrent variable decels SVE was repeat and was minimally changed at 5-6/C/0 Given patient is remote from delivery with minimal to no cervical change, recommendation was to proceed with Patient is agreement. Written informed consent was obtained. Proceed to OR for Cat II tracing remote from delivery Objective - Vital Signs/Intake & Output Intake & Output: Intake & Output 08/06/21 08/07/21 08/08/21 08/09/21 23:59 23:59 23:59 23:59 Intake Total 2082.6 Output Total 975 Balance 1107.6 - Lab Results Fish Bones: 08/09/21 06:49 Other Labs: Lab Results x24hrs 08/09/21 08/09/21 08/09/21 Range/Units 08:01 06:49 06:49 WBC 11.6 H (4.8-10.8) x10^3/uL RBC 4.30 (4.20-5.40) 10^6/uL Hgb 13.1 (12.0-16.0) g/dL Hct 39.7 (37.0-47.0) % MCV 92.3 (81.0-99.0) fL MCH 30.5 (27.0-31.0) pg MCHC 33.0 (32.0-36.0) g/dL RDW 14.7 (12.0-15.0) % Plt Count 225 (130-450) 10^3/uL MPV 12.9 H (7.9-10.8) fL Neut # (Auto) 8.1 H (1.5-6.6) 10^3/uL Lymph # (Auto) 2.0 (1.5-3.5) 10^3/uL [place] # (Auto) 1.3 H (0.0-1.0) 10^3/uL Eos # (Auto) 0.1 (0.0-0.7) 10^3/uL Baso # (Auto) 0.1 (0.0-0.1) 10^3/uL Urine Color YELLOW Urine Clarity CLEAR (CLEAR) Urine pH 6.0 (5.0-7.5) PH Ur Specific [place] 1.010 (1.002-1.030) Urine Protein NEGATIVE (NEGATIVE) mg/dL Urine Glucose (UA) 100 H (NEGATIVE) mg/dL Urine Ketones NEGATIVE (NEGATIVE) mg/dL Urine Occult Blood NEGATIVE (NEGATIVE) Urine Nitrite NEGATIVE (NEGATIVE) Urine Bilirubin NEGATIVE (NEGATIVE) Urine Urobilinogen 0.2 (NORMAL) (NORMAL) E.U./dL Ur Leukocyte Esterase NEGATIVE (NEGATIVE) Ur Microscopic Review NOT INDICATED Urine Culture Comments NOT INDICATED Blood Type O POSITIVE Antibody Screen NEGATIVE
[2021-08-09] MEDS ORDERED: CITRIC ACID/SODIUM CITRATE 15 ML UDC PO ONE (18:48)
[2021-08-09] MEDS ORDERED: AZITHROMYCIN INJ 500 MG in SODIUM CHLORIDE 0.9% 250 ML IV ONE (19:00)
[2021-08-09] MEDS ORDERED: SODIUM CHLORIDE 0.9% 100ML 100 ML IV ONE (19:00)
[2021-08-09] MEDS ORDERED: LACTATED RINGERS 1,000 ML ONE (19:22)
[2021-08-09] MEDS ORDERED: KETAMINE 500 MG/10 ML VIAL ONE (19:59)
[2021-08-09] MEDS ORDERED: LACTATED RINGERS 1,000 ML IV ONE (20:06)
[2021-08-09] MEDS ORDERED: DEXAMETHASONE 4 MG/ML VIAL ONE (20:35)
[2021-08-09] MEDS ORDERED: ONDANSETRON 4 MG/2 ML VIAL ONE (20:35)
[2021-08-09] MEDS ORDERED: PHENYLEPHRINE 10 MG/ML VIAL ONE (20:35)
[2021-08-09] MEDS ORDERED: ePHEDrine 50 MG/ML VIAL IVP ONE (20:35)
[2021-08-09] MEDS ORDERED: LIDOCAINE MPF 2%-EPI 1:200000 20 ML VIAL ONE (20:35)
[2021-08-09] MEDS ORDERED: SODIUM CHLORIDE 0.9% 10 ML VIAL IVP ONE (20:35)
[2021-08-09] MEDS ORDERED: ONDANSETRON ODT 4 MG TABLET TL PRN (20:37)
[2021-08-09] MEDS ORDERED: SIMETHICONE CHEW 80 MG TABLET PO PRN (20:37)
[2021-08-09] MEDS ORDERED: LACTATED RINGERS 1,000 ML IV SCH ×2 (21:00→22:00)
--- NOTE | 2021-08-09 21:13 | OPERATIVE REPORT ---
Operative Report - General Admit Date: 08/09/21 Procedure Date: 08/09/21 Planned Procedure: Low transverse Pre-Op Diagnosis: intolerance of labor Procedure Performed: Primary low transverse Post Op Diagnosis: Same and delivery of term gestation - Procedure Note Primary Surgeon: Angi Silva MD Secondary Surgeon: Blanco Yoon MD Anesthesia Provider: Ashely Chapman CRNA Anesthesia Technique: Epidural Pathology: Placenta for routine discard IV Fluids (mL): 1,300 Estimated Blood Loss (mL): 1,200 Urine Output (mL): 200 (pending, see anesthesia record) Indications: Patient is a 26 yo at 41+0 wga who presented in labor. tracing showed intermittent periods of minimal variability but responded well to fluid resuscitation and scalp stimulation. After patient went for several hours with advancing cervical dilation, she was started on pitocin with a max dose of 4 mu/min. Given periods of Category II tracing, it was difficult to increase pitocin dosing. She underwent artificial rupture of membranes which was notable for scant bloody fluid. tracing showed recurrent decelerations in the setting of minimal variability. SVE was 5-6/C/0 station and had not changed over 4+ hours. Given that patient was remote from delivery, decision was made to proceed with primary . Findings: Female infant in vertex presentation with weight and Apgars pending. Normal appearing uterus, fallopian tubes, and ovaries. Complications: none - Other Other Information/Narrative: Risks benefits and alternatives of the procedure were discussed. Written informed consent was obtained. Patient was taken to the operating room where spinal anesthesia was placed and found to be adequate. She was prepped and draped in the usual sterile fashion in the dorsal supine position with a leftward tilt. Raymundo catheter was in place. SCDs were in place and activated. Cefazolin 2 g IV and azithromycin 500 mg IV was given as a preoperative antibiotic. Preoperative timeout was performed. A Pfannenstiel incision was made in the skin with a scalpel and carried through the underlying layer of fascia in a combination of sharp and blunt dissection. The fascia was incised in the midline, and the incision was extended laterally. The superior aspect of the fascial incision was grasped with the David clamps, elevated, and the underlying rectus muscles were dissected off bluntly and sharply using the Turner scissors. Attention was then turned to the inferior aspect of the incision which in a similar fashion was grasped, tented up with David clamps, and the underlying rectus muscles dissected off bluntly and sharply using Turner scissors. The rectus muscles were then in the midline. The peritoneum was identified, tented up, and entered bluntly. The peritoneal incision was extended superiorly and inferiorly with good visualization of the bladder. The bladder that blade was then inserted. A bladder flap was not created. The lower uterine segment of the uterus was identified, and incised in a transverse fashion with a scalpel. The uterus was entered bluntly. The uterine incision was extended in a craniocaudal fashion by manual stretch. The bladder blade was removed. The infant was delivered from from vertex position. Baby was wrapped in a warm sterile towel. Delayed cord clamping was performed. After cessation of pulsations, the cord was clamped x2 and cut. The infant was handed off to the waiting pediatricians. The placenta was removed with manual expression. The uterus was exteriorized and cleared of all clots and debris via manual swipe using Ray-Emily x2. The uterine incision was then repaired in a running locked fashion using 0 Vicryl suture. The incision was reinforced with a running imbricating layer again using 0-Vicryl suture. Two additional figure of 8 sutures were placed, one with 0-Vicryl and the other with 2-0 Chromic, to reinforce the hysterotomy. Excellent hemostasis was obtained. The uterus was returned to the abdomen. The gutters were cleared of all clots and debris. The pelvis was irrigated with warm sloppy wet lap sponges x2. The uterine defect was well visualized in normal anatomic position it was noted again to be hemostatic. The peritoneum was then reapproximated with 2-0 Vicryl in a running fashion. During the course of the peritoneal closure, patient vomited and bowel was expressed into the field with needle active. The suture needle was removed form the field without resistance. Bowel was inspected and no defects were noted. The rectus muscles were then reapproximated using interrupted [id number] sutures using 2-0 Chromic. Good hemostasis was noted. The fascia was then closed using 0 Vicryl in a running fashion starting from the left lateral edge to the midline. A second suture was used to close the fascia in a running fashion starting from the right lateral edge and meeting in the midline, again using 0-Vicryl. The subcutaneous tissue was then irrigated and closed using 2-0 chromic in a running subcutaneous suture. Skin was closed in a running subcuticular suture using 4-0 Monocryl. Steri-Strips were applied to reinforce the incision and dressing was applied. Procedure was well-tolerated and without complication. Sponge lap and needle counts were correct x2. Patient was taken to recovery room in stable condition. Dr. Yoon assisted with retraction, delivery of the infant, and suturing.
[2021-08-09] MEDS ORDERED: KETOROLAC 30 MG/ML VIAL ONE (21:26)
[2021-08-09] MEDS: KETOROLAC 30 MG/ML VIAL IVP SCH (21:30)
[2021-08-09] MEDS: ACETAMINOPHEN 500 MG TABLET PO SCH (21:30)
[2021-08-09] MEDS ORDERED: HYDROmorphone 0.5 MG/0.5 ML SYRINGE IVP PRN (21:42)
[2021-08-09] MEDS ORDERED: ATROPINE ABBOJECT 1 MG/10 ML SYRINGE IVP PRN (21:42)
[2021-08-09] MEDS ORDERED: MORPHINE 2 MG/ML CARPUJECT IVP PRN (21:42)
[2021-08-09] MEDS ORDERED: fentaNYL 100 MCG/2 ML VIAL IVP PRN (21:42)
[2021-08-09] MEDS ORDERED: ACETAMINOPHEN 1,000 MG/100 ML 100 ML IV ONE (21:43)
[2021-08-09] MEDS: metroNIDAZOLE 250 MG TABLET PO SCH (23:13)
[2021-08-09] MEDS: NORTRIPTYLINE 25 MG CAPSULE PO SCH (23:13)
[2021-08-09] MEDS: DOCUSATE SODIUM 100 MG CAPSULE PO SCH (23:13)
[2021-08-10] MEDS: ceFAZolin 1 GM in SODIUM CHLORIDE 0.9% 100ML 100 ML IV SCH ×2 (02:45→11:47)
[2021-08-10] MEDS: KETOROLAC 30 MG/ML VIAL IVP SCH ×3 (03:32→16:07)
--- NOTE | 2021-08-10 04:03 | ANESTHESIA POST OP EVALUATION ---
Anesthesia Post Eval - Post Anesthesia Eval Vitals: Last Vital Signs Temp 36.8 C 08/09/21 22:00 Pulse 104 H 08/09/21 23:00 Resp 18 08/09/21 23:00 BP 124/82 H 08/09/21 23:00 Pulse Ox 98 08/09/21 23:00 CV Function Including HR & BP: Stable Pain Control: Satisfactory Nausea & Vomiting: Negative Mental Status: Baseline Respiratory Status: Airway Patent Hydration Status: Satisfactory Anesthesia Complications: None
[2021-08-10] MEDS: ACETAMINOPHEN 500 MG TABLET PO SCH ×3 (05:34→23:55)
[2021-08-10] MEDS: oxyCODONE 5 MG TABLET PO PRN ×4 (05:55→19:47)
[2021-08-10 07:40] LABS: BASOPHILS # (AUTO) 0.1 10^3/uL (0.0-0.1); BASOPHILS % (AUTO) 0.3 %; HCT - HEMATOCRIT 30.9 % (37.0-47.0); HGB - HEMOGLOBIN 10.2 g/dL (12.0-16.0); LYMPHOCYTES % (AUTO) 5.7 %; MEAN CORPUSCULAR HEMOGLOBIN 30.4 pg (27.0-31.0); MEAN CORPUSCULAR VOLUME 92.2 fL (81.0-99.0); MEAN PLATELET VOLUME 12.6 fL (7.9-10.8); MONOCYTES # (AUTO) 0.8 10^3/uL (0.0-1.0); MONOCYTES % (AUTO) 4.8 %; NEUTROPHILS # (AUTO) 15.6 10^3/uL (1.5-6.6); NEUTROPHILS % (AUTO) 88.4 %; PLT - PLATELET COUNT 212 10^3/uL (130-450); RED BLOOD COUNT 3.35 10^6/uL (4.20-5.40); RED CELL DISTRIBUTION WIDTH 14.7 % (12.0-15.0); WHITE BLOOD COUNT 17.6 x10^3/uL (4.8-10.8)
[2021-08-10] MEDS: metroNIDAZOLE 250 MG TABLET PO SCH ×2 (08:17→11:48)
[2021-08-10] MEDS ORDERED: lamoTRIgine 25 MG TABLET PO SCH ×2 (09:00→15:29)
[2021-08-10] MEDS: SODIUM CHLORIDE FLUSH 0.9% 10 ML SYRINGE IVP SCH ×2 (09:50→16:08)
[2021-08-10] MEDS: DOCUSATE SODIUM 100 MG CAPSULE PO SCH ×2 (09:50→20:14)
--- NOTE | 2021-08-10 09:51 | PROVIDER PROGRESS NOTE ---
Subjective - Prog Note Date Prog Note Date: 08/10/21 - Subjective Subjective: Subjective Patient reports she is doing well. No fever or chills. Lochia appropriate. Denies heavy bleeding. Ambulating. Pelvic and abdominal pain well-controlled. Tolerating oral intake. Diet: Regular. Raymundo recently removed, has not voided spontaneously. Passing flatus. Denies BM. Patient is bonding with baby in room Breast feeding going well. Denies feeling lightheaded, dizzy or excessively fatigued. Objective General: Alert, oriented, no apparent distress. Cardiovascular: Regular rate. Regular rhythm. No murmur. Lungs: Clear to auscultation. Good air movement. No crackles or wheezes Abdomen: Uterus firm. Below umbilicus. Normal active bowel sounds. No guarding or rebound. Incision: Bandage in place. Extremities: Normal pedal pulses. No edema. No cords. Assessment and Plan day 1. -Routine care -Anticipate discharge in 1 to 2 days -Continue postsurgical antibiotics for 24 hours. 2. Depression: -Continue home nortriptyline and lamotrigine. Objective - Vital Signs/Intake & Output Vital Signs: Vital Signs x48h Temp Pulse Resp BP Pulse Ox 08/10/21 08:00 98.4 F 93 16 111/75 08/10/21 03:15 98.6 F 97 17 109/69 98 Intake & Output: Intake & Output 08/07/21 08/08/21 08/09/21 08/10/21 23:59 23:59 23:59 23:59 Intake Total 3413.2 1225 Output Total 1725 630 Balance 1688.2 595 - Lab Results Fish Bones: 08/10/21 07:19 Other Labs: Lab Results x24hrs 08/10/21 08/09/21 Range/Units 07:19 06:49 WBC 17.6 H (4.8-10.8) x10^3/uL RBC 3.35 L (4.20-5.40) 10^6/uL Hgb 10.2 L (12.0-16.0) g/dL Hct 30.9 L (37.0-47.0) % MCV 92.2 (81.0-99.0) fL MCH 30.4 (27.0-31.0) pg MCHC 33.0 (32.0-36.0) g/dL RDW 14.7 (12.0-15.0) % Plt Count 212 (130-450) 10^3/uL MPV 12.6 H (7.9-10.8) fL Neut # (Auto) 15.6 H (1.5-6.6) 10^3/uL Lymph # (Auto) 1.0 L (1.5-3.5) 10^3/uL [place] # (Auto) 0.8 (0.0-1.0) 10^3/uL Eos # (Auto) 0.0 (0.0-0.7) 10^3/uL Baso # (Auto) 0.1 (0.0-0.1) 10^3/uL Absolute Nucleated RBC 0.00 x10^3/uL Nucleated RBC % 0.0 /100WBC Blood Type O POSITIVE Antibody Screen NEGATIVE Crossmatch IS Only See Detail
--- NOTE | 2021-08-10 14:43 | XRAY Report ---
PROCEDURE: Abdomen 1 View X-Ray INDICATIONS: confirm surgical case count TECHNIQUE: 1 view of the abdomen were acquired. COMPARISON: None. FINDINGS: Surgical changes and devices: None. Bowel: No pneumoperitoneum. Nonspecific bowel gas pattern. Moderate stool burden in the right colon. Soft tissues: No masses; visualized solid organ contours appear normal in size. No suspicious abdom inal calcifications. Bones: No suspicious bony abnormalities. IMPRESSION: No significant abnormality. Reviewed by: Kj Vences MD on 08/10/2021 2:42 PM PST Approved by: jK Vences MD on 08/10/2021 2:42 PM [facility] Station ID: [id number]
[2021-08-10] MEDS: NORTRIPTYLINE 25 MG CAPSULE PO SCH (20:05)
[2021-08-10] MEDS ORDERED: ceFAZolin 1 GM in SODIUM CHLORIDE 0.9% 100ML 100 ML IV SCH (20:30)
[2021-08-10] MEDS ORDERED: ceFAZolin 1 GM in SODIUM CHLORIDE 0.9% MINIBAG 100 ML IV ONE (21:00)
[2021-08-10] MEDS: IBUPROFEN 600 MG TABLET PO SCH (22:24)
[2021-08-11] MEDS: IBUPROFEN 600 MG TABLET PO SCH ×2 (05:10→13:00)
[2021-08-11] MEDS: oxyCODONE 5 MG TABLET PO PRN ×4 (05:10→16:51)
[2021-08-11] MEDS: DOCUSATE SODIUM 100 MG CAPSULE PO SCH (09:14)
[2021-08-11] MEDS: ACETAMINOPHEN 500 MG TABLET PO SCH ×2 (09:14→16:50)
--- NOTE | 2021-08-11 12:38 | Discharge Plan ---
Discharge Plan Problem Reviewed?: Yes Disposition: Home, Self Care Condition: Good Diet: Regular Activity Restrictions: Additional Comments Shower Restrictions: No Driving Restrictions: Yes (No driving while taking opioids pain mediations) Weight Bearing: Partial Weight (Nothing heavier than baby and carseat.) Instruction Topics: C Section Dc No Smoking: If you smoke, Please STOP! Call for help. Follow-up with: Rekha Silva MD [Provider Admit Priv/Credential] -
--- NOTE | 2021-08-11 12:41 | DISCHARGE SUMMARY ---
Discharge Summary Admit Date: 08/09/21 Discharge Date: 08/11/21 Discharging Provider: Blanco Yoon MD Code Status: Attempt Resuscitation Condition at Discharge: Good Discharge Disposition: 01 Home, Self Care - DIAGNOSES Admission Diagnoses: Category 2 tracing, Term labor Discharge Diagnoses with Status of Each Condition: Term labor: Status post primary low transverse section Category 2 tracing: Delivered - HPI History of Present Illness: Subjective Patient reports she is doing well. Lochia appropriate. Denies heavy bleeding. Ambulating. Pelvic and abdominal pain well-controlled. Tolerating oral intake. Diet: Regular. Voiding without difficulty. Passing flatus. Denies BM. Patient is bonding with baby in room Breast feeding going well. Denies feeling lightheaded, dizzy or excessively fatigued. Objective General: Alert, oriented, no apparent distress. Cardiovascular: Regular rate. Regular rhythm. No murmur. Lungs: Clear to auscultation. Good air movement. No crackles or wheezes Abdomen: Uterus firm. Below umbilicus. Normal active bowel sounds. No guarding or rebound. Incision: Clean, dry, and intact. Extremities: Normal pedal pulses. No edema. No cords. - HOSPITAL COURSE Hospital Course: Patient is a 26-year-old G1, P0 who presented at G3, P0 who presented at 41 weeks 0 days gestation complaining of contractions. At that time she was noted to be tashi and had a category 2 tracing was kept for augmentation. She received oxytocin for augmentation and amniotomy showed a small blood-tinged fluid. She continued have intermittent category 2 tracing and was remote from delivery and decision was made to proceed with primary low transverse section. Surgery was complicated by a hemorrhage of 1200 mL. She was hemodynamically stable throughout her course. She did well and was discharged on day 2 with baby. - ALLERGIES Allergies/Adverse Reactions: Allergies Allergy/AdvReac Type Severity Reaction Status Date / Time No Known Drug Allergies Allergy Verified 08/09/21 07:28 - MEDICATIONS Home Medications: Ambulatory Orders Medication Instructions Recorded Confirmed Nortriptyline [Pamelor] 25 mg PO DAILY 04/13/20 06/08/21 Pnv No.95/Ferrous Fum/Folic AC 1 tab PO DAILY 12/22/20 06/08/21 [ Tablet] Famotidine [Pepcid] 40 mg PO QPM 06/08/21 06/08/21 hydrOXYzine HCL [Hydroxyzine HCl] 25 mg PO TID PRN #20 tablet 06/08/21 lamoTRIgine [LaMICtal] 25 mg PO DAILY 06/08/21 06/08/21 Acetaminophen [Acetaminophen Extra 1,000 mg PO Q8H PRN #60 tablet 08/11/21 Strength] Docusate Sodium 100Mg Capsule 100 - 200 mg PO BID PRN #60 cap 08/11/21 [Colace 100Mg Capsule] Ibuprofen [Motrin] 600 mg PO Q6H PRN #30 tab 08/11/21 oxyCODONE [Roxicodone] 2.5 - 5 mg PO Q4H PRN #24 tablet 08/11/21 - LABS Result Diagrams: 08/10/21 07:19 - FOLLOW UP Follow Up: Follow-up with Dr. [facility] in 1 week. - TIME SPENT Time Spent in Discharge (Minutes): 20
[2021-08-11 18:28] VITALS: BP 110/68
--- NOTE | 2021-08-11 19:15 | Labor Flowsheet ---
Labor Flowsheet Datetime Report Generated by CPN: 08/11/2021 19:14 Datetime: 08/09/2021 19:00 VITAL SIGNS NBP Sys/Chrissie/Mean (mmHg): 151 : 102 : 111 Pulse: 105 LaborFlag: Labor Datetime: 08/09/2021 18:43 UTERINE ACTIVITY Monitor Mode: External Frequency (min): 2-2.5 Quality: Moderate Duration (sec): 40-60 Pattern: Normal: <= 5 Contractions in 10 Minutes Resting Tone (Palpate): Relaxed ASSESSMENT A Monitor Mode: Telemetry FHR Baseline Rate : 150 Variability: Minimal - Undetectable to <=5 bpm Accelerations: None Decelerations: Variable Category: Category II MEDICATIONS Pitocin (milliunits): Discontinued Medication Comments: Pt. going for C Section COMMUNICATION Communication: Provider at Bedside Communication Comments: [employer] here, pt. rolled to OR Datetime: 08/09/2021 18:39 VAGINAL EXAM Dilatation (cm): 5.0 Effacement (%): 100 Station: 0 Exam by: dr stewart Provider Reviewed Strip: Yes Datetime: 08/09/2021 18:17 Patient Position/Activity: Right Lateral Patient Care Comments: w/ peanut ball Datetime: 08/09/2021 17:37 Temperature (C): 37.0 Datetime: 08/09/2021 17:21 Amniotic Fluid Color: Bloody Amniotic Fluid Amount: Scant Datetime: 08/09/2021 17:07 PATIENT CARE IV/Blood Work: IV Bag Number @ 3 Datetime: 08/09/2021 16:46 Membrane Status: Ruptured Membranes Rupture Method: Artificial Membrane Comments: Dr. McSorely Datetime: 08/09/2021 16:45 Monitor Interventions for UA: Lee Adjusted Contraction Comments: unable to determine/adjust toco Datetime: 08/09/2021 16:31 Vaginal Bleeding: Normal Show Datetime: 08/09/2021 16:04 Anesthesia Level Check: T10- Umbilicus Datetime: 08/09/2021 15:22 Respirations: 16 Datetime: 08/09/2021 14:12 Pitocin Checklist: At Least 1 Acceleration of 15 bpm x 15 Seconds in 30 Minutes or Adequate Variabi lity; No More than 1 Late Deceleration Occurred in Past 30 Minutes; No More than 2 Variable Decelerat ions > 60 Seconds in Duration and decreasing >60 bpm in 30 minutes; No More than 5 Uterine Contractio ns in 10 Minutes for any 20 Minute Interval; Uterus Palpates Soft between Contractions Datetime: 08/09/2021 13:17 I/O Interventions: Raymundo Cath Inserted Datetime: 08/09/2021 12:36 Epidural Procedure: Test Dose Anesthesia Comments: 2nd Datetime: 08/09/2021 12:26 PROCEDURE TIME OUT Procedure Verify: Correct Patient Identity; Correct Side and Site are Marked; Accurate Procedure Co nsent Form; Agreement on Procedure to be Done; Correct Patient Position; Addressed Need to Administer Antibiotics or Fluids for Irrigation; Safety Precautions Based on Patient History or Medication Use ANESTHESIA Anesthesia Plans: Epidural Epidural Positioning: Sitting Datetime: 08/09/2021 12:04 Vaginal Exam Comments: Posterior Datetime: 08/09/2021 12:00 Comments: Minimal to moderate Datetime: 08/09/2021 09:33 SpO2 (%): 99 Temperature Route: Oral Datetime: 08/09/2021 07:00 Actions for Decelerations: Side to Side; IV Bolus; Provider Notified Datetime: 08/09/2021 06:59 TEACHING Instructional Method: Verbal; Patient Instructed; Family/Support Person Instructed; Verbalized Unde rstanding Plan of Care: Plan of Care Discussed; Vaginal Delivery Unit Routine: [place] to Room; Call [place]; Visiting Policy; Unit Personnel; Monitoring; Safety/ Fall Risk Prevention; Diet/Nutrition Services Labor/Induction: Interventions Pain Management: Epidural; Pain Scale/Goals; Comfort Measures
== END 2021-08-11 19:13 | disposition home or self-care (01) | DRG 788 ==
LOC: WFO 05:58 → FBP 05:59 → WFO 06:26 → FBP 06:27
PROVIDERS: ADMIT Obstetrics & Gynecology; ATTEND Obstetrics & Gynecology
PROC: 10907ZC Drainage of Amniotic Fluid, Therapeutic from Products of Conception, Via Natural or Artificial Opening (ICD-10-PCS; 2021-08-09)
PROC: 10D00Z1 Extraction of Products of Conception, Low, Open Approach (ICD-10-PCS; principal; 2021-08-09 17:15)
DX: O76 Abnormality in fetal heart rate and rhythm complicating labor and delivery (principal); O99.344 Other mental disorders complicating childbirth; F32.A Depression, unspecified; Z3A.41 41 weeks gestation of pregnancy; Z37.0 Single live birth
CPT/HCPCS: 36415; 74018; 81003; 85025; 86850; 86900; 86901; 86920; A9270; J0131; J7120; 81001; 87086